=== PATIENT | male | born 1940 | race Caucasian/White ===

== ENCOUNTER → 2018-02-06 06:33 | Day surgery (SDC) | payer MEDICARE, OTHER, SELFPAY ==
--- NOTE | 2018-02-06 | PATH_ITS ---
[facility] Accession Number: [id number] . 01 Material submitted: . PART A: RIGHT COLON POLYPS X2 PART B: COLON POLYP AT 35 CM . 01 Clinical history: . A: POLYPS X2 . 02 Diagnosis: A. Right Colon Polyps: Fragments of tubular adenoma and fragments of sessile serrated adenoma (two polyps removed). . B. Colon Polyp at 35 cm: Tubulovillous adenoma. Negative for high-grade dysplasia or malignancy. MRV/02/10/2018 . 02 Electronically signed: . Abhay Montes De Oca MD, PhD, Pathologist NPI- [id number] . 01 Gross description: . Part A: RIGHT COLON POLYPS X2: Received in formalin are multiple fragment(s) of santos, soft tissue measuring 1.4 x 0.3 x 0.3 cm in aggregate submitted entirely in 1 cassette(s) Part B: COLON POLYP AT 35 CM: Received in formalin are multiple fragment(s) of santos, soft tissue measuring 2.0 x 1.1 x 0.3 cm in aggregate submitted entirely in 1 cassette(s) /CKI /CKI . 02 Pathologist provided ICD-10: D12.6 . 02 CPT . 550116, [id number] Performed at: [address] [facility] [address], [place], [place] [id number] MD Yuriy Lui MD Phone: [phone] Performed at: 02 [facility] [address] [place], [place] [id number] MD Adelfo Jones MD Phone: [phone]
[2018-02-06 07:24] VITALS: BP 155/76; PULSE 58; RESP 16; TEMP 36.4; O2SAT 100; BMI 24.2
--- NOTE | 2018-02-06 09:12 | PM.HP.1 ---
History of Present Illness Date Patient Seen: 02/06/18 Time Patient Seen: 09:12 Chief complaint: colonoscopy [id number] Narrative: Very pleasant 77-year-old man with a history of multiple colon polyps and ulcerative colitis. His last colonoscopy was 2 years ago. He denies any new problems or symptoms related to the function of his GI tract. Patient History Surgical History Status post hernia repair Family & Social History Family History: Reviewed 02/06/18 by Shaina Hussein MD Social History: household members spouse Meds Home Medications Medication Instructions Recorded Confirmed Type VITAMIN D (Vitamin D3) 1,000 unit PO QDAY #0 11/01/10 History Fish Oil 2,000 mg PO Q DAY #0 02/09/13 History sildenafil (antihypertensive) 0 PO SEE INSTRUCTIONS #100 tab 12/06/16 Rx fluticasone [Flonase Allergy 1 spray INTRANASAL QDAY #1 bot 01/11/17 Rx Relief] diphenhydramine HCl [Benadryl 25 mg PO Q6HP PRN #0 02/14/17 History Allergy] vitamin B complex [B 1 tab PO QDAY #0 02/14/17 History Complex-Vitamin B12] mesalamine [Asacol HD] 800 PO TID 02/06/18 History Allergies Allergy/AdvReac Type Severity Reaction Status Date / Time gluten [GLUTEN] Allergy Severe INTESTINAL Verified 02/06/18 07:23 BLEEDING caffeine [CAFFEINE] Allergy Intermediate CARDIAC Verified 02/06/18 07:23 IRREGULARITY erythromycin base Allergy Intermediate NAUSEA Verified 02/06/18 07:23 [ERYTHROMYCIN BASE] lactose [LACTOSE] Allergy Unknown Verified 02/06/18 07:23 doxycycline [DOXYCYCLINE] AdvReac Unknown NAUSEA, Verified 02/06/18 07:23 LOSS OF APPETITE AND ENERGY, MENTAL CHANGES. DARK CHOCOLATE Allergy Intermediate PHLEGM Uncoded 09/25/17 11:58 Review of Systems Review of Systems All systems reviewed & are unremarkable except as noted in HPI and below Exam Vital Signs (past 8 hours): - 02/06/18 07:24 Temperature 97.5 F L Pulse Rate 58 L Respiratory Rate 16 Blood Pressure 155/76 H Pulse Oximetry 100 Narrative Exam Narrative: Very pleasant gentleman in no distress. He appears much younger than his stated age. HEENT: Normocephalic atraumatic, pupils equal round reactive to light accommodation with anicteric sclera Lungs: Clear bilaterally Heart: Regular rate and rhythm Abdomen: Soft, nontender, active bowel sounds Extremities: Warm and well perfused Assessment & Plan Plan: Assessment/Plan Narrative: Pleasant gentleman with history of multiple colon polyps presenting for another screening colonoscopy. We have discussed the risks and benefits of the procedure the patient expressed desire to complete it today
[2018-02-06] MEDS: SODIUM CHLORIDE 0.9% 1,000 ML 200 ML IV ×2 (09:18→10:00)
[2018-02-06] MEDS: MIDAZOLAM 5 MG/5 ML VIAL IV (09:21)
[2018-02-06] MEDS: fentaNYL 250 MCG/5 ML INJ IV (09:22)
--- NOTE | 2018-02-06 10:01 | PM.OP.1 ---
Operative Date/Time/Diagnoses Date of procedure: 02/06/18 Time of procedure: 10:01 Pre-op diagnosis: Screening Personal history of colon polyps Post-op diagnosis: same Procedure & Clinicians Procedure: Colonoscopy to the cecum with polypectomy x3 Same procedure as scheduled: Yes Indications: Last colonoscopy 2 years ago with removal of benign polyps Surgeon: Shaina Hussein Anesthesia Type: Sedation (Versed 9 mg; fentanyl 200 mcg) Operative Notes Findings: 1. Excellent prep 2. Two polyps in the mid right colon. The 1st 2-3 mm and the 2nd 5-6 mm. One removed with cold forceps and 1 removed with snare and cautery. Both were retained for pathology. 3. 2 cm polyp at 35 cm from the anal verge. Removed in multiple segments with snare and cautery. The bed of the polyp was cauterized and marked with Marilou ink. 4. Sigmoid diverticulosis without evidence of inflammation 5. No obvious evidence of active colitis Closure Type: not applicable Specimen(s): other Procedure in detail: After obtaining informed consent, the patient was brought to the GI suite and placed in the left lateral decubitus position on the examination table. After placement of appropriate monitors, the patient was given incremental doses of Versed and Fentanyl until an appropriate level of sedation was achieved. A time out was held per SCOAP protocol. A digital rectal examination was performed and did not reveal any masses or obstructing lesions. The colonoscope was gently passed into the patient's anus and the entire colon navigated to the level of the cecum with minimal difficulty. Once in the cecum, the scope was withdrawn being sure to go before and beyond all mucosal folds and prominences and get an excellent examination. Upon withdrawing the scope, we noted a small sessile polyp in the mid right colon. This was removed with cold forceps. About 3 cm distal to this we noted a semi pedunculated larger polyp that was removed with snare and cautery. Continuing our examination distally, at 35 cm from the anal verge, there was a polyp chloride, multilobulated sessile polyp. This was removed with a combination of snare and cautery, cold forceps, and fulguration of the bed. All segments were retained for pathology. The site of this polyp was marked with Marilou ink. Other findings are noted above. At the level of the rectal vault, the scope was retroflexed and the internal anal canal was examined. The scope was straightened and air aspirated from the colon. The instrument was removed from the patient's body and the procedure was concluded. The patient was allowed to awaken from sedation without difficulty and taken to the post-anesthesia care unit in good condition. Complications: none Condition: stable Disposition: PACU Plan for aftercare: 1. Discharge to home 2. Repeat colonoscopy in 3 months to evaluate the 35 cm location for regrowth.
[2018-02-06 10:09] VITALS: BP 118/75; PULSE 56; RESP 13; TEMP 36.3; O2SAT 99
[2018-02-06 10:12] VITALS: PULSE 52; RESP 10; O2SAT 99
[2018-02-06 10:25] VITALS: BP 135/62; PULSE 50; RESP 14; TEMP 36.3; O2SAT 99
== END | disposition home or self-care (01) ==
PROVIDERS: Family Provider Family Medicine; PCP Family Medicine; Visit Provider Surgery
PROC: 0DJD8ZZ Inspection of Lower Intestinal Tract, Via Natural or Artificial Opening Endoscopic (ICD-10-PCS; CPT 45378; principal; 2018-02-06 07:45)
DX: Z86.010 Personal history of colon polyps (principal); K57.30 Diverticulosis of large intestine without perforation or abscess without bleeding; D12.6 Benign neoplasm of colon, unspecified
CPT/HCPCS: 45380; 45385; 99152; 99153; J2250; J3010

== ENCOUNTER 2018-04-24 07:48 | Day surgery (SDC) | payer MEDICARE, OTHER, SELFPAY ==
--- NOTE | 2018-04-24 | PATH_ITS ---
[facility] Accession Number: [id number] . 01 Material submitted: . DISTAL RIGHT COLON . 02 Diagnosis: Distal Right Colon, Biopsy: Fragments of sessile serrated adenoma. MRV/04/25/2018 . 02 Electronically signed: . Abhay Montes De Oca MD, PhD, Pathologist NPI- [id number] . 01 Gross description: . Received one formalin-filled container labeled with the patient's name and labeled distal R colon. The specimen consists of four 0.1-0.5 cm portions of tissue, entirely submitted in one cassette. ([id number]) /FRR . 02 Pathologist provided ICD-10: D12.6 . 02 CPT . 149369 Specimen Comment: A duplicate report has been generated due to demographic updates. Performed at: 01 [facility] [address] [id number] MD Yuriy Lui MD Phone: [phone] Performed at: 02 [facility] [id number] [place] [id number] MD Dot Miranda MD Phone: [phone]
[2018-04-24 11:13] VITALS: BP 160/84; PULSE 83; RESP 16; TEMP 36.2; O2SAT 100; BMI 23.8
--- NOTE | 2018-04-24 12:13 | PM.HP.1 ---
History of Present Illness Date Patient Seen: 04/24/18 Chief complaint: [id number] COLONOSCOPY Narrative: 77 y/o male with history of ulcerative colitis for more than 20yrs, history of polyps, no history of colon cancer. Good managment with mesalamine. Denies, bleeding, melena, constipation. Has infrequent loose stools. 2cm wide based polyp removed during surveillance colonoscopy [address] Hussein. Kieran tatooed at site. Here for follow up endoscopy to re-evaluate [facility]. Patient History Surgical History Status post hernia repair Family & Social History Family History: Reviewed 04/24/18 by Crow Maza MD Social History: household members spouse Meds Home Medications Medication Instructions Recorded Confirmed Type VITAMIN D (Vitamin D3) 1,000 unit PO QDAY #0 11/01/10 04/24/18 History Fish Oil 2,000 mg PO Q DAY #0 02/09/13 04/24/18 History fluticasone [Flonase Allergy 1 spray INTRANASAL QDAY #1 bot 01/11/17 04/24/18 Rx Relief] diphenhydramine HCl [Benadryl 25 mg PO Q6HP PRN #0 02/14/17 04/24/18 History Allergy] vitamin B complex [B 1 tab PO QDAY #0 02/14/17 History Complex-Vitamin B12] mesalamine [Asacol HD] 800 mg PO TID 02/06/18 04/24/18 History cetirizine 10 mg PO DAILY PRN 04/24/18 04/24/18 History naproxen sodium [Aleve] 220 mg PO BID PRN 04/24/18 04/24/18 History ranitidine HCl [Zantac] 150 mg PO DAILY 04/24/18 04/24/18 History sildenafil (antihypertensive) 80 mg PO SEE INSTRUCTIONS PRN 04/24/18 04/24/18 History Allergies Allergy/AdvReac Type Severity Reaction Status Date / Time gluten [GLUTEN] Allergy Severe INTESTINAL Verified 04/24/18 11:07 BLEEDING caffeine [CAFFEINE] Allergy Intermediate CARDIAC Verified 04/24/18 11:07 IRREGULARITY erythromycin base Allergy Intermediate NAUSEA Verified 04/24/18 11:07 [ERYTHROMYCIN BASE] lactose [LACTOSE] Allergy Unknown Verified 04/24/18 11:07 doxycycline [DOXYCYCLINE] AdvReac Unknown NAUSEA, Verified 04/24/18 11:07 LOSS OF APPETITE AND ENERGY, MENTAL CHANGES. DARK CHOCOLATE Allergy Intermediate PHLEGM Uncoded 04/24/18 11:07 Review of Systems Review of Systems All systems reviewed & are unremarkable except as noted in HPI and below Exam Vital Signs (past 8 hours): - 04/24/18 11:13 Temperature 97.1 F L Pulse Rate 83 Respiratory Rate 16 Blood Pressure 160/84 H Pulse Oximetry 100 Oxygen Delivery Method Room Air Const General: cooperative, healthy appearing and comfortable [facility] Head: normal to inspection, normocephalic and atraumatic Eyes Sclera: sclerae normal Neck Neck: supple Chest Chest: normal inspection of the chest Resp Effort & Inspection: normal respiratory effort Cardio Rate: regular rate Rhythm: regular rhythm GI Inspection: normal to inspection Palpation: soft Neuro General: alert and awake Extrem General: normal to inspection Psych Appearance: grossly normal Mood: congruent mood Affect: normal affect Thought Process: normal Thought Content: normal Judgment: judgment good Assessment & Plan Plan: Assessment/Plan Narrative: Colonoscopy to re-evalute biopsy site at 35cm. procedure, benefits, risks reviwed with patient.
--- NOTE | 2018-04-24 12:18 | P.HP_ITS ---
History of Present Illness Date Patient Seen: 04/24/18 Chief complaint: [id number] COLONOSCOPY Narrative: 77 y/o male with history of ulcerative colitis for more than 20yrs, history of polyps, no history of colon cancer. Good managment with mesalamine. Denies, bleeding, melena, constipation. Has infrequent loose stools. 2cm wide based polyp removed during surveillance colonoscopy [address] Hussein[address] Kieran tatooed at site. Here for follow up endoscopy to re-evaluate [facility]. Patient History Surgical History Status post hernia repair Family & Social History Family History: Reviewed 04/24/18 by Crow Maza MD Social History: household members spouse Meds Home Medications Medication Instructions Recorded Confirmed Type VITAMIN D (Vitamin D3) 1,000 unit PO QDAY #0 11/01/10 04/24/18 History Fish Oil 2,000 mg PO Q DAY #0 02/09/13 04/24/18 History fluticasone [Flonase Allergy 1 spray INTRANASAL QDAY #1 bot 01/11/17 04/24/18 Rx Relief] diphenhydramine HCl [Benadryl 25 mg PO Q6HP PRN #0 02/14/17 04/24/18 History Allergy] vitamin B complex [B 1 tab PO QDAY #0 02/14/17 History Complex-Vitamin B12] mesalamine [Asacol HD] 800 mg PO TID 02/06/18 04/24/18 History cetirizine 10 mg PO DAILY PRN 04/24/18 04/24/18 History naproxen sodium [Aleve] 220 mg PO BID PRN 04/24/18 04/24/18 History ranitidine HCl [Zantac] 150 mg PO DAILY 04/24/18 04/24/18 History sildenafil (antihypertensive) 80 mg PO SEE INSTRUCTIONS PRN 04/24/18 04/24/18 History Allergies Allergy/AdvReac Type Severity Reaction Status Date / Time gluten [GLUTEN] Allergy Severe INTESTINAL Verified 04/24/18 11:07 BLEEDING caffeine [CAFFEINE] Allergy Intermediate CARDIAC Verified 04/24/18 11:07 IRREGULARITY erythromycin base Allergy Intermediate NAUSEA Verified 04/24/18 11:07 [ERYTHROMYCIN BASE] lactose [LACTOSE] Allergy Unknown Verified 04/24/18 11:07 doxycycline [DOXYCYCLINE] AdvReac Unknown NAUSEA, Verified 04/24/18 11:07 LOSS OF APPETITE AND ENERGY, MENTAL CHANGES. DARK CHOCOLATE Allergy Intermediate PHLEGM Uncoded 04/24/18 11:07 Review of Systems Review of Systems All systems reviewed & are unremarkable except as noted in HPI and below Exam Vital Signs (past 8 hours): - 04/24/18 11:13 Temperature 97.1 F L Pulse Rate 83 Respiratory Rate 16 Blood Pressure 160/84 H Pulse Oximetry 100 Oxygen Delivery Method Room Air Const General: cooperative, healthy appearing and comfortable [facility] Head: normal to inspection, normocephalic and atraumatic Eyes Sclera: sclerae normal Neck Neck: supple Chest Chest: normal inspection of the chest Resp Effort & Inspection: normal respiratory effort Cardio Rate: regular rate Rhythm: regular rhythm GI Inspection: normal to inspection Palpation: soft Neuro General: alert and awake Extrem General: normal to inspection Psych Appearance: grossly normal Mood: congruent mood Affect: normal affect Thought Process: normal Thought Content: normal Judgment: judgment good Assessment & Plan Plan: Assessment/Plan Narrative: Colonoscopy to re-evalute biopsy site at 35cm. procedure, benefits, risks reviwed with patient.
[2018-04-24] MEDS: fentaNYL 250 MCG/5 ML INJ IV (14:33)
[2018-04-24] MEDS: MIDAZOLAM 5 MG/5 ML VIAL IV (14:34)
[2018-04-24 14:35] VITALS: BP 139/67; PULSE 61; RESP 15; TEMP 36.7; O2SAT 98
[2018-04-24] MEDS: diphenhydrAMINE 50 MG/ML VIAL IV (14:39)
--- NOTE | 2018-04-24 14:44 | P.OP.ENDO_ITS ---
Operative Date/Time/Diagnoses Date of procedure: 04/24/18 Procedure & Clinicians Study performed: colonoscopy with biopsy Same procedure as scheduled: Yes Indications: Ulcerative colitis History of colon polyps. Colonoscopy 3 months ago revealed large, wide-based polyp at 35cm. Repeat colonoscopy to evaluate polypectomy site. Surgeon: Crow Maza Procedure Notes SCOAP/Timeout: done Procedure in detail: Patient taken from preoperative area to endoscopy suite with adequate iv access on guerny. Timeout was performed. IV sedation sedation was titrated throughout the case while patient was continuously monitored. No lesions were revealed with inspection of anal orifice. Digital exam failed to palpate any lesions. A well lubricated Fuji colonoscope was gently introduced through the anus and advanced to the cecum using the dither- torque technique. Confirmation of reaching the cecum was acheived by identifying the appendiceal orifice and ileocecal valve. a raised wide-based polypoid mass was identified on mucosal ridge in distal right colon. It was removed using snare and cold biopsy forcep techniques. The residual base was sterilized with electrocautery. Scattered few diverticuli seen in the sigmoid colon. No ink tatoo was seen in sigmoid or rectum region. An invagination of mucosa along a mucosal ridge was identifed at 34cm, most likely representing prior biopsy site. Retroflexion of the endoscope in lower third of rectum revealed grade 2 internal hemorrhoids. Residual insufflation was evacuated. Patient tolerated procedure well and was transferred to PACU in stable condition. Scope withdrawal time: 32 Sedation minutes: 49 Findings: diverticulosis (sigmoid) and polyp (distal ascending colon) Specimen(s): other (polyp) Complications: none Recommendations: Colonscopy in 1 year and Other recommendation (follow up with surgical clinic for appointment to review biopsy results) Follow up: weeks (1-2 weeks) Disposition: same day surgery
[2018-04-24 15:03] VITALS: BP 124/68; PULSE 60; RESP 15; TEMP 36.6; O2SAT 98
[2018-04-24 15:30] VITALS: BP 122/63; PULSE 60; RESP 16; TEMP 36.6; O2SAT 98
== END 2018-04-24 14:45 ==
LOC: ENDO 07:52
PROVIDERS: Surgery; Family Provider Family Medicine; PCP Family Medicine; Visit Provider Surgery
PROC: 0DJD8ZZ Inspection of Lower Intestinal Tract, Via Natural or Artificial Opening Endoscopic (ICD-10-PCS; CPT 45378; principal; 2018-04-24 11:15)
DX: Z09 Encounter for follow-up examination after completed treatment for conditions other than malignant neoplasm (principal); Z86.010 Personal history of colon polyps; Z87.19 Personal history of other diseases of the digestive system; K64.1 Second degree hemorrhoids; K57.30 Diverticulosis of large intestine without perforation or abscess without bleeding; D12.6 Benign neoplasm of colon, unspecified
CPT/HCPCS: 45385; 88305; 99152; 99153; J1200; J2250; J3010

== ENCOUNTER 2018-05-05 20:05 | Observation (INO) | payer MEDICARE, OTHER, SELFPAY ==
[2018-05-05 20:07] VITALS: BP 154/89; PULSE 96; RESP 20; TEMP 36.8; O2SAT 100
[2018-05-05 20:45] VITALS: BP 154/89; PULSE 87; RESP 20; TEMP 36.8; O2SAT 100
[2018-05-05 20:48] LABS: Alanine Aminotransferase 27 IU/L (21-72); Albumin Globulin Ratio 1.7 (1.0-2.8); Alkaline Phosphatase 72 U/L (38-126); Aspartate Aminotransferase 25 IU/L (17-59); BUN Creatinine Ratio 18.8 (6-22); Bilirubin Total 0.5 mg/dL (0.2-1.3); Blood Urea Nitrogen 15 mg/dL (9-20); Carbon Dioxide 30 mmol/L (22-32); Chloride 102 mmol/L (98-107); Estimated Glomerular Filt Rate > 60.0 mL/min (>60); Globulin 2.4 g/dL (1.7-4.1); Glucose 111 mg/dL (80-110); HEMOLYSIS < 15 (0-50); Potassium 4.4 mmol/L (3.4-5.1); Sodium 141 mmol/L (137-145); Total Protein 6.4 g/dL (6.3-8.2)
--- NOTE | 2018-05-05 20:49 | ED.GIBLEED ---
HPI - GI Bleed <PAULY Wyman - Last Filed: 05/05/18 21:58> General Chief complaint: GI Bleed Stated complaint: BLOOD IN STOOLS Time Seen by Provider: 05/05/18 20:48 Source: patient Mode of arrival: ambulatory Limitations: no limitations History of Present Illness HPI Narrative: 77-year-old male with history of Crohn's disease as a nonsmoker here for complaint of having bloody stool that started earlier today the. The he has had 3 episodes of bloody stool. He denies any abdominal pain. He does state that he is had constipation over the last several days. He states he had a large bowel movement earlier this morning and noticed that he was bleeding after that bowel movement. He denies any abdominal pain. However he does states he had some groin pain a couple days ago. He denies any trauma to the rectal area. He does report that he had a colonoscopy last week for further evaluation of polyps to his colon area. He denies any bleeding or abdominal pain after the colonoscopy. He denies any fevers or chills. Related Data Home Medications Medication Instructions Recorded Confirmed VITAMIN D (Vitamin D3) 1,000 unit PO QDAY #0 11/01/10 05/06/18 Fish Oil 2,000 mg PO Q DAY #0 02/09/13 04/24/18 diphenhydramine HCl [Benadryl 25 mg PO Q6HP PRN #0 02/14/17 04/24/18 Allergy] vitamin B complex [B 1 tab PO QDAY #0 02/14/17 05/06/18 Complex-Vitamin B12] mesalamine [Asacol HD] See Label Instructions .ROUTE 02/06/18 04/24/18 .COMPLEX cetirizine 10 mg PO DAILY PRN 04/24/18 04/24/18 naproxen sodium [Aleve] 220 mg PO BID PRN 04/24/18 04/24/18 ranitidine HCl [Zantac] 150 mg PO DAILY 04/24/18 04/24/18 sildenafil (antihypertensive) 80 mg PO SEE INSTRUCTIONS PRN 04/24/18 05/06/18 Previous Rx's Medication Instructions Recorded fluticasone [Flonase Allergy 1 spray INTRANASAL QDAY #1 bot 01/11/17 Relief] Allergies Allergy/AdvReac Type Severity Reaction Status Date / Time gluten [GLUTEN] Allergy Severe INTESTINAL Verified 04/24/18 11:07 BLEEDING caffeine [CAFFEINE] Allergy Intermediate CARDIAC Verified 04/24/18 11:07 IRREGULARITY erythromycin base Allergy Intermediate NAUSEA Verified 04/24/18 11:07 [ERYTHROMYCIN BASE] lactose [LACTOSE] Allergy Unknown Verified 04/24/18 11:07 doxycycline [DOXYCYCLINE] AdvReac Unknown NAUSEA, Verified 04/24/18 11:07 LOSS OF APPETITE AND ENERGY, MENTAL CHANGES. DARK CHOCOLATE Allergy Intermediate PHLEGM Uncoded 04/24/18 11:07 Review of Systems <PAULY Wyman - Last Filed: 05/05/18 21:58> Constitutional Denies chills, Denies fever(s), Denies lethargy and Denies weakness Eyes Denies change in vision, Denies eye discharge, Denies irritation and Denies loss of vision ENT Ears, Nose, Mouth, and Throat: Denies change in voice, Denies neck pain and Denies sore throat Cardiovascular Denies chest pain, Denies irregular heart rhythm, Denies lightheadedness, Denies palpitations, Denies dyspnea, Denies dyspnea on exertion and Denies orthopnea Respiratory Denies cough, Denies dyspnea, Denies dyspnea on exertion and Denies wheezing Gastrointestinal Gastrointestinal: Denies abdominal pain, Denies change in bowel habits, Denies diarrhea, Denies nausea and Denies vomiting Comments: Bloody stool Genitourinary Denies hematuria, Denies flank pain, Denies urinary incontinence and Denies urinary urgency Comments: Groin pain Musculoskeletal Denies neck pain Neurologic Denies confusion, Denies loss of vision and Denies weakness Psychiatric Denies anxiety, Denies confusion, Denies depression, Denies homicidal ideation and Denies suicidal ideation Endocrine Denies palpitations Hematologic/Lymphatic Denies easy bruising Allergic/Immunologic Denies wheezing Exam <PAULY Wyman - Last Filed: 05/05/18 21:58> Initial Vital Signs Initial Vital Signs: Vital Signs Temperature 98.3 F 05/05/18 20:07 Pulse Rate 96 H 05/05/18 20:07 Respiratory Rate 20 05/05/18 20:07 Blood Pressure 154/89 H 05/05/18 20:07 Pulse Oximetry 100 05/05/18 20:07 Const General: cooperative and well developed Nutritional Appearance: well nourished Orientation: alert, awake, oriented x3 and not confused [facility] Mouth: oral mucosae normal and moist mucous membranes Eyes Conjunctivae: conjunctivae normal Sclera: sclerae normal Pupils: PERRL EOM: EOM intact bilaterally Resp Effort & Inspection: normal respiratory effort, able to speak in complete sentences, no respiratory distress and no use of accessory muscles Auscultation: clear to auscultation bilaterally, no rales, no rhonchi and no wheezes Cardio Rate: regular rate Rhythm: regular rhythm Heart Sounds: no click, no gallops, no murmurs and no rubs GI Inspection: non-distended Palpation: soft, no hepatosplenomegaly, No guarding, No pulsatile mass and No tender Auscultation: normal bowel sounds Rectal Exam: visual inspection normal, normal sphincter tone and heme positive stool Other: Bloody stool on rectal exam General: No CVA tenderness Penis: normal penis Meatus: meatus normal and no meatla discharge Scrotum: scrotum normal Testes: epididymal tenderness and testicular tenderness Other: Inguinal hernia not appreciated to the left inguinal area Skin General: no rashes or lesions noted, No jaundice and No petechiae Neuro General: alert, oriented x3, gait normal and no focal motor deficits Speech: speech normal <Cyril Flowers DO - Last Filed: 05/06/18 02:00> Initial Vital Signs Initial Vital Signs: Vital Signs Temperature 98.3 F 05/05/18 20:07 Pulse Rate 96 H 05/05/18 20:07 Respiratory Rate 20 05/05/18 20:07 Blood Pressure 154/89 H 05/05/18 20:07 Pulse Oximetry 100 05/05/18 20:07 Course <PAULY Wyman - Last Filed: 05/05/18 21:58> Orders Ordered: ED Orders 05/05/18 20:25 CBC [Complete Blood Count AUTO DIFF] Stat CMP [Comprehensive Metabolic Panel] Stat PT [Prothrombin Time INR] Stat Type and Screen Stat 05/05/18 21:11 CT abdomen pelvis w con Stat 05/05/18 21:35 US scrotum Stat 05/06/18 00:07 Hemoglobin and Hematocrit Stat 05/06/18 00:35 Packed Cells Stat Vital Signs - 8 hr 05/05/18 20:07 05/05/18 20:45 05/05/18 21:00 Temperature 98.3 F 98.3 F Pulse Rate 96 H 87 87 Respiratory Rate 20 20 20 Blood Pressure 154/89 H 154/89 H Blood Pressure [Right Arm] 140/69 Pulse Oximetry 100 100 100 05/05/18 21:46 05/05/18 22:32 05/05/18 23:00 Temperature Pulse Rate 70 77 82 Respiratory Rate 16 18 20 Blood Pressure Blood Pressure [Right Arm] 142/83 H 139/84 136/75 Pulse Oximetry 100 100 05/06/18 00:00 05/06/18 00:37 05/06/18 00:50 Temperature Pulse Rate 75 67 68 Respiratory Rate 17 17 17 Blood Pressure 121/68 Blood Pressure [Right Arm] 148/63 H 94/54 L Pulse Oximetry 99 100 99 05/06/18 01:10 Temperature 96.7 F L Pulse Rate 75 Respiratory Rate 16 Blood Pressure 124/66 Blood Pressure [Right Arm] Pulse Oximetry 99 <Cyril Flowers, DO - Last Filed: 05/06/18 02:00> Orders Ordered: ED Orders 05/05/18 20:25 CBC [Complete Blood Count AUTO DIFF] Stat CMP [Comprehensive Metabolic Panel] Stat PT [Prothrombin Time INR] Stat Type and Screen Stat 05/05/18 21:11 CT abdomen pelvis w con Stat 05/05/18 21:35 US scrotum Stat 05/06/18 00:07 Hemoglobin and Hematocrit Stat 05/06/18 00:35 Packed Cells Stat Reevaluation(s) Reevaluation #1: very large amount of blood with clots trailing to the emergency department after the patient had ambulated. He has become dizzy, weak and lightheaded and will certainly need to be admitted. Call to Dr. Hussein, whom is happy to be involved in consult, but recommends admission to hospitalist Vital Signs - 8 hr 05/05/18 20:07 05/05/18 20:45 05/05/18 21:00 Temperature 98.3 F 98.3 F Pulse Rate 96 H 87 87 Respiratory Rate 20 20 20 Blood Pressure 154/89 H 154/89 H Blood Pressure [Right Arm] 140/69 Pulse Oximetry 100 100 100 05/05/18 21:46 05/05/18 22:32 05/05/18 23:00 Temperature Pulse Rate 70 77 82 Respiratory Rate 16 18 20 Blood Pressure Blood Pressure [Right Arm] 142/83 H 139/84 136/75 Pulse Oximetry 100 100 05/06/18 00:00 05/06/18 00:37 05/06/18 00:50 Temperature Pulse Rate 75 67 68 Respiratory Rate 17 17 17 Blood Pressure 121/68 Blood Pressure [Right Arm] 148/63 H 94/54 L Pulse Oximetry 99 100 99 05/06/18 01:10 Temperature 96.7 F L Pulse Rate 75 Respiratory Rate 16 Blood Pressure 124/66 Blood Pressure [Right Arm] Pulse Oximetry 99 MDM - GI Bleed <PAULY Wyman - Last Filed: 05/05/18 21:58> Lab Data Result diagrams: 05/05/18 23:30 05/05/18 20:25 Lab Results 05/05/18 05/05/18 05/05/18 Range/Units 20:25 20:25 20:25 WBC 7.1 (4.5-11.0) X10^3/uL RBC 4.36 L (4.5-5.9) X10^6/uL Hgb 13.8 (13.5-17.5) g/dL Hct 41.3 (41-53) % MCV 94.8 (80-100) fL MCH 31.7 (26-34) PG MCHC 33.4 (30-36) % RDW 12.7 (11.6-14.8) % Plt Count 237 (150-400) X10^3/uL Neut % (Auto) 47.4 L (50-75) % Lymph % (Auto) 41.9 H (25-40) % [place] % (Auto) 7.0 (3-14) % Eos % (Auto) 3.0 (2-4) % Baso % (Auto) 0.7 (0-2) % Neut # (Auto) 3400 (3933-0318) /uL PT 11.8 (10.1-12.7) SECONDS INR 1.1 (0.9-1.3) Sodium 141 (137-145) mmol/L Potassium 4.4 (3.4-5.1) mmol/L Chloride 102 (98-107) mmol/L Carbon Dioxide 30 (22-32) mmol/L BUN 15 (9-20) mg/dL Creatinine 0.80 (0.66-1.25) mg/dL Estimated GFR > 60.0 (>60) mL/min BUN/Creatinine Ratio 18.8 (6-22) Glucose 111 H (80-110) mg/dL Calcium 9.0 (8.4-10.2) mg/dL Total Bilirubin 0.5 (0.2-1.3) mg/dL AST 25 (17-59) IU/L ALT 27 (21-72) IU/L Alkaline Phosphatase 72 (38-126) U/L Total Protein 6.4 (6.3-8.2) g/dL Albumin 4.0 (3.5-5.0) g/dL Globulin 2.4 (1.7-4.1) g/dL Albumin/Globulin Ratio 1.7 (1.0-2.8) Blood Type Antibody Screen Crossmatch 05/05/18 05/05/18 Range/Units 20:25 23:30 WBC (4.5-11.0) X10^3/uL RBC (4.5-5.9) X10^6/uL Hgb 12.3 L (13.5-17.5) g/dL Hct 36.6 L (41-53) % MCV (80-100) fL MCH (26-34) PG MCHC (30-36) % RDW (11.6-14.8) % Plt Count (150-400) X10^3/uL Neut % (Auto) (50-75) % Lymph % (Auto) (25-40) % [place] % (Auto) (3-14) % Eos % (Auto) (2-4) % Baso % (Auto) (0-2) % Neut # (Auto) (2723-8174) /uL PT (10.1-12.7) SECONDS INR (0.9-1.3) Sodium (137-145) mmol/L Potassium (3.4-5.1) mmol/L Chloride (98-107) mmol/L Carbon Dioxide (22-32) mmol/L BUN (9-20) mg/dL Creatinine (0.66-1.25) mg/dL Estimated GFR (>60) mL/min BUN/Creatinine Ratio (6-22) Glucose (80-110) mg/dL Calcium (8.4-10.2) mg/dL Total Bilirubin (0.2-1.3) mg/dL AST (17-59) IU/L ALT (21-72) IU/L Alkaline Phosphatase (38-126) U/L Total Protein (6.3-8.2) g/dL Albumin (3.5-5.0) g/dL Globulin (1.7-4.1) g/dL Albumin/Globulin Ratio (1.0-2.8) Blood Type O Positive Antibody Screen Negative Crossmatch See Detail MDM Narrative Medical decision making narrative: CBC and Chem panel were obtained and were unremarkable. INR was normal. Rectal exam was negative for any lesions or injuries. Bloody stool on rectal exam. Ultrasound of the testicular area was ordered. CT of the abdomen was ordered. Due to change of shift. Patient was turned over to Dr. Flowers <Cyril Flowers, DO - Last Filed: 05/06/18 02:00> Lab Data Lab Results 05/05/18 05/05/18 05/05/18 Range/Units 20:25 20:25 20:25 WBC 7.1 (4.5-11.0) X10^3/uL RBC 4.36 L (4.5-5.9) X10^6/uL Hgb 13.8 (13.5-17.5) g/dL Hct 41.3 (41-53) % MCV 94.8 (80-100) fL MCH 31.7 (26-34) PG MCHC 33.4 (30-36) % RDW 12.7 (11.6-14.8) % Plt Count 237 (150-400) X10^3/uL Neut % (Auto) 47.4 L (50-75) % Lymph % (Auto) 41.9 H (25-40) % [place] % (Auto) 7.0 (3-14) % Eos % (Auto) 3.0 (2-4) % Baso % (Auto) 0.7 (0-2) % Neut # (Auto) 3400 (1108-4253) /uL PT 11.8 (10.1-12.7) SECONDS INR 1.1 (0.9-1.3) Sodium 141 (137-145) mmol/L Potassium 4.4 (3.4-5.1) mmol/L Chloride 102 (98-107) mmol/L Carbon Dioxide 30 (22-32) mmol/L BUN 15 (9-20) mg/dL Creatinine 0.80 (0.66-1.25) mg/dL Estimated GFR > 60.0 (>60) mL/min BUN/Creatinine Ratio 18.8 (6-22) Glucose 111 H (80-110) mg/dL Calcium 9.0 (8.4-10.2) mg/dL Total Bilirubin 0.5 (0.2-1.3) mg/dL AST 25 (17-59) IU/L ALT 27 (21-72) IU/L Alkaline Phosphatase 72 (38-126) U/L Total Protein 6.4 (6.3-8.2) g/dL Albumin 4.0 (3.5-5.0) g/dL Globulin 2.4 (1.7-4.1) g/dL Albumin/Globulin Ratio 1.7 (1.0-2.8) Blood Type Antibody Screen Crossmatch 05/05/18 05/05/18 Range/Units 20:25 23:30 WBC (4.5-11.0) X10^3/uL RBC (4.5-5.9) X10^6/uL Hgb 12.3 L (13.5-17.5) g/dL Hct 36.6 L (41-53) % MCV (80-100) fL MCH (26-34) PG MCHC (30-36) % RDW (11.6-14.8) % Plt Count (150-400) X10^3/uL Neut % (Auto) (50-75) % Lymph % (Auto) (25-40) % [place] % (Auto) (3-14) % Eos % (Auto) (2-4) % Baso % (Auto) (0-2) % Neut # (Auto) (2133-4816) /uL PT (10.1-12.7) SECONDS INR (0.9-1.3) Sodium (137-145) mmol/L Potassium (3.4-5.1) mmol/L Chloride (98-107) mmol/L Carbon Dioxide (22-32) mmol/L BUN (9-20) mg/dL Creatinine (0.66-1.25) mg/dL Estimated GFR (>60) mL/min BUN/Creatinine Ratio (6-22) Glucose (80-110) mg/dL Calcium (8.4-10.2) mg/dL Total Bilirubin (0.2-1.3) mg/dL AST (17-59) IU/L ALT (21-72) IU/L Alkaline Phosphatase (38-126) U/L Total Protein (6.3-8.2) g/dL Albumin (3.5-5.0) g/dL Globulin (1.7-4.1) g/dL Albumin/Globulin Ratio (1.0-2.8) Blood Type O Positive Antibody Screen Negative Crossmatch See Detail Discharge Plan Departure Patient Disposition: Admitted as Observation Clinical Impression: Acute GI bleeding Discharge Date/Time: 05/06/18 00:50 Interventions: ED Discharge Assessment Last Done: 05/06/18 00:50 Admit Date/Time: 05/06/18 00:26 Admit Provider: Sanjana Werner
[2018-05-05 20:51] LABS: INR 1.1 (0.9-1.3); Prothrombin Time 11.8 SECONDS (10.1-12.7)
[2018-05-05 21:00] VITALS: BP 140/69; PULSE 87; RESP 20; O2SAT 100
[2018-05-05 21:06] LABS: Add Manual Diff / Slide Review NO; Basophils Percent Auto 0.7 % (0-2); Hematocrit 41.3 % (41-53); Hemoglobin 13.8 g/dL (13.5-17.5); Lymphocytes Percent Auto 41.9 % (25-40); Mean Corpuscular HGB Conc 33.4 % (30-36); Mean Corpuscular Hemoglobin 31.7 PG (26-34); Mean Corpuscular Volume 94.8 fL (80-100); Neutrophils Absolute Auto 3400 /uL (3000-5900); Neutrophils Percent Auto 47.4 % (50-75); Platelet Count 237 X10^3/uL (150-400); Red Blood Cell Count 4.36 X10^6/uL (4.5-5.9); Red Cell Distribution Width 12.7 % (11.6-14.8); White Blood Cell Count 7.1 X10^3/uL (4.5-11.0)
--- NOTE | 2018-05-05 21:11 | DI.CT.S_ITS ---
PROCEDURE: CT ABDOMEN PELVIS W CON INDICATIONS: GI bleed TECHNIQUE: After the administration of intravenous contrast, 5 mm thick sections acquired from the diaphragm to the symphysis. 5 mm coronal and sagittal reformats were acquired. For radiation dose reduction, the following was used: automated exposure control, adjustment of mA and/or kV according to patient size. COMPARISON: [facility], CT, ABD/PELVIS W/CON (PNL), 10/31/2010, 12:10. FINDINGS: Image quality: Excellent. ABDOMEN: Lung bases: There is minimal dependent atelectasis. A small hiatal hernia is present. Heart size is normal. Solid organs: There are 2 small hypodensities redemonstrated within the right and left hepatic lobes measuring up to approximately 7 mm which appear unchanged and likely representing cysts. Biliary system is non dilated. Pancreas enhances normally. Spleen is normal in size and enhancement. No adrenal nodules. Kidneys demonstrate no hydronephrosis. Peritoneum and bowel: Bowel loops demonstrate normal wall thickness and caliber. There are air-fluid levels demonstrated throughout the small and large bowel suggestive of a gastroenteritis. No abnormal bowel distention to suggest obstruction. No discrete mass identified. There are 2 radiodense ovoid foreign bodies within a small bowel loop in the left midabdomen likely representing ingested pills. No free fluid or air. Nodes and vessels: No retroperitoneal or mesenteric adenopathy by size criteria. Aorta and inferior vena cava are normal in size. Miscellaneous: No ventral hernias. PELVIS: Genitourinary: Bladder wall thickness is normal. There is mild heterogeneous enlargement of the prostate. Miscellaneous: There is small bilateral fat-containing inguinal hernias. No inguinal adenopathy. Bones: No suspicious bony lesions. No vertebral body compression fractures. IMPRESSION: 1. Air-fluid levels demonstrated throughout the small and large bowel suggestive of gastroenteritis. No definite evidence of obstruction or discrete mass lesion. 2. 2 radiodense foreign bodies in the small bowel likely representing ingested foreign bodies. Dictated by: Yuriy Adams M.D. on 05/05/2018 at 22:18 Approved by: Yuriy Adams M.D. on 05/05/2018 at 22:25
--- NOTE | 2018-05-05 21:15 | PC.NURSE ---
Pt states bloody stool x 3 today, recent colonoscopy on 04/24 with polyp removal and biopsy results still pending. Pt states left groin pain 06/26, denies N/V, ABD pain or SOB. Bowel sounds active in all quadrants upon auscultation.
--- NOTE | 2018-05-05 21:35 | DI.US.S_ITS ---
PROCEDURE: US SCROTUM INDICATIONS: LEFT INGUINAL/TESTICULAR PAIN TECHNIQUE: Real-time scanning was performed of the scrotum and testicles, with image documentation. Color and pulse Doppler interrogation was performed of both testicles. COMPARISON: [facility], CT, CT ABDOMEN PELVIS W CON, 05/05/2018, 21:14. FINDINGS: Right: Testicle is normal in size at 2.6 x 3.5 x 4.5 cm, and homogenous in echotexture. Epididymis is normal in overall size and morphology. No hydrocele or varicoceles. Overlying scrotal skin is normal in thickness. Left: Testicle is normal in size at 2.0 x 3.2 x 4.3 cm, and homogeneous in echotexture. Epididymis is normal in overall size and morphology. No hydrocele there is a prominent varicocele on the left. Overlying scrotal skin is normal in thickness. Doppler: Color and pulse Doppler demonstrate normal and symmetric arterial flow in both testicles. IMPRESSION: Prominent left varicocele, but the epididymis and testis appears normal. Dictated by: Connor Gabriel M.D. on 05/06/2018 at 8:25 Approved by: Connor Gabriel M.D. on 05/06/2018 at 8:28
[2018-05-05 21:46] VITALS: BP 142/83; PULSE 70; RESP 16
[2018-05-05 22:32] VITALS: BP 139/84; PULSE 77; RESP 18; O2SAT 100
[2018-05-05 23:00] VITALS: BP 136/75; PULSE 82; RESP 20; O2SAT 100
[2018-05-06] VITALS (11 sets, daily range): BP systolic 94–148; BP diastolic 41–68; PULSE 60–75; RESP 16–20; TEMP 35.9–37; O2SAT 96–100; BMI 24.2
--- NOTE | 2018-05-06 | PC.NURSE ---
Pt stated felt dizzy upon getting dressed for DC, had episode of incontinent bloody BM in room, Dr Flowers Notified.
[2018-05-06 00:15] LABS: Hematocrit 36.6 % (41-53); Hemoglobin 12.3 g/dL (13.5-17.5)
--- NOTE | 2018-05-06 02:31 | PC.NURSE ---
0110 Admitted to room 222, accompanied by his Lili. Diagnosed with GI bleed. Denies any dizziness, nausea & abdominal pain. Assisted to the BSC noted bloody stool mixed with urine noted 400 cc out. ER ordered to transfused 2 units of PRBC's, but when I checked the blood from the lab. LB.YALMA DELIA noted his H&H was12.3 & 36.6. Notified hospitalist Alphonso ordered to hold transfusion for now & will rechecked his H&H. Informed pt. that the transfusion is on hold for now. Pt. oriented to his room showed how to use his call light, TV & bed controls. Call for assistance if needed to get up OOB to the BR or BSC, call light with in reached. Lili staying for the night, will cont. POC & monitor.
--- NOTE | 2018-05-06 03:34 | P.HP_ITS ---
History of Present Illness Date Patient Seen: 05/06/18 Time Patient Seen: 03:34 Chief complaint: BLOOD IN STOOLS Narrative: The patient is a 77-year-old male w/ PMH is significant for HTN, HLD, asthma, CTS, cholelithiasis, BPH, small hiatal hernia, small b/l inguinal hearnias, UC w/ rectal bleeding, hemorrhoids, spinal stenosis (lumbar) , trochanteric bursitis (left hip), rosacia, and actinic keratosis. Patient presented to the ED on 05/05/18 out of concern for blood per rectum. Symptom onset is acute, started at approximately 7:00 a.m. on 05/05/2018. At that time reports presence of rectal urgency; however, no defecation or blood loss. Then at 11:00 at experienced similar sensation, which was followed by a large bowel movement with dark red blood. No reported diarrhea. Prior to ED presentation he has had additional 3 episodes of blood loss per rectum, which consisted entirely of blood and blood clots (no further BM). Associated sx include: groin pain (2-3 days ago), arthropathy (recently worse), and constipation. Patient is unable to provide clear description to discern if he is experiencing melena or hematochezia. Also, experienced addition 2 episodes of blood per rectum while in ED and 1 upon arrival to the acute care floor. Denies recent illness, fever/chills, hematemesis, abdominal tenderness, dyspepsia, abdominal distention, nausea, vomiting or tenesmus. Denies use of aspirin or any other anticoagulation. He does use Aleve, 1 tablet daily 5 days per week. Patient has had a colonoscopyw/ polypectomy on 04/24/2018. No post- procedural complications or concerns. GI history significant for ulcerative colitis, treated w/ Asacol. No h/o alcohol abuse or esophageal varices. ED work-up WBC 7.1, RBC 4.36, Hgb 13.8, Plt 237; PT 11.8, INR 1.1; CMP unremarkable CT AP w/ contrast, 05/05 Air-fluid levels demonstrated throughout the small and large bowel suggestive of gastroenteritis. No definite evidence of obstruction or discrete mass lesion. Patient History Surgical History Status post hernia repair Family & Social History Family History: Reviewed 05/06/18 by PAULY Parra Social History: household members spouse,family,friend(s) Prior Living Arrangements House Safety & Behavioral: Feels Safe in Current No Environment Been Physically Hurt or No Threatened By a Person Suicidal Ideation Description None Suicide Plan Description No Plan Tobacco & Substance use: Smoking Status Never smoker alcohol intake current alcohol intake frequency 3 or more drinks per day Meds Home Medications Medication Instructions Recorded Confirmed Type VITAMIN D (Vitamin D3) 1,000 unit PO QDAY #0 11/01/10 05/06/18 History Fish Oil 2,000 mg PO Q DAY #0 02/09/13 05/06/18 History fluticasone [Flonase Allergy 1 spray INTRANASAL QDAY #1 bot 01/11/17 05/06/18 Rx Relief] diphenhydramine HCl [Benadryl 25 mg PO Q6HP PRN #0 02/14/17 05/06/18 History Allergy] vitamin B complex [B 1 tab PO QDAY #0 02/14/17 05/06/18 History Complex-Vitamin B12] mesalamine [Asacol HD] See Label Instructions .ROUTE 02/06/18 05/06/18 History .COMPLEX cetirizine 10 mg PO DAILY PRN 04/24/18 05/06/18 History naproxen sodium [Aleve] 220 mg PO BID PRN 04/24/18 05/06/18 History ranitidine HCl [Zantac] 150 mg PO DAILY 04/24/18 05/06/18 History sildenafil (antihypertensive) 80 mg PO SEE INSTRUCTIONS PRN 04/24/18 05/06/18 History Allergies Allergy/AdvReac Type Severity Reaction Status Date / Time gluten [GLUTEN] Allergy Severe INTESTINAL Verified 04/24/18 11:07 BLEEDING caffeine [CAFFEINE] Allergy Intermediate CARDIAC Verified 04/24/18 11:07 IRREGULARITY erythromycin base Allergy Intermediate NAUSEA Verified 04/24/18 11:07 [ERYTHROMYCIN BASE] lactose [LACTOSE] Allergy Unknown Verified 04/24/18 11:07 doxycycline [DOXYCYCLINE] AdvReac Unknown NAUSEA, Verified 04/24/18 11:07 LOSS OF APPETITE AND ENERGY, MENTAL CHANGES. DARK CHOCOLATE Allergy Intermediate PHLEGM Uncoded 04/24/18 11:07 Review of Systems Review of Systems All systems reviewed & are unremarkable except as noted in HPI and below Exam Vital Signs (past 8 hours): - 05/05/18 20:07 05/05/18 20:45 05/05/18 21:00 Temperature 98.3 F 98.3 F Pulse Rate 96 H 87 87 Respiratory Rate 20 20 20 Blood Pressure 154/89 H 154/89 H Blood Pressure [Right Arm] 140/69 Pulse Oximetry 100 100 100 05/05/18 21:46 05/05/18 22:32 05/05/18 23:00 Temperature Pulse Rate 70 77 82 Respiratory Rate 16 18 20 Blood Pressure Blood Pressure [Right Arm] 142/83 H 139/84 136/75 Pulse Oximetry 100 100 05/06/18 00:00 05/06/18 00:37 05/06/18 00:50 Temperature Pulse Rate 75 67 68 Respiratory Rate 17 17 17 Blood Pressure 121/68 Blood Pressure [Right Arm] 148/63 H 94/54 L Pulse Oximetry 99 100 99 05/06/18 01:10 Temperature 96.7 F L Pulse Rate 75 Respiratory Rate 16 Blood Pressure 124/66 Blood Pressure [Right Arm] Pulse Oximetry 99 Oxygen Delivery Method Room Air Narrative Exam Narrative: Constitutional: NAD Neurologic: AOx3, no focal neurological deficits Head: NC, AT Eyes: Pupils equal and reactive, EOMI Ears: external ears normal, no otorrhea Nose: external nose normal, no rhinorrhea or epistaxis Throat: dry MM, oropharynx w/o exudate Neck: no masses, no lymphadenopathy Chest / Respiratory: equal chest rise, unlabored respiratory effort, no tachypnea, CTAB Heart / CV: S1S2, no murmur Abdomen / GI: round, NT, ND, hypoactive, no organomegaly : no suprapubic tenderness, no CVA, no inguinal lymphadenopathy or palpable inguinal hernias Peripheral / Vascular: warm to touch, DP 2+ bilaterally, trace LE edema RLE only Musc: full ROM of upper and lower extremities, adequate muscle tone and bulk Skin: no ecchymosis or suspicious lesions Objective Labs Result Diagrams: 05/05/18 23:30 05/05/18 20:25 Labs: Laboratory Results - last 24 hr 05/05/18 05/05/18 05/05/18 20:25 20:25 20:25 WBC 7.1 RBC 4.36 L Hgb 13.8 Hct 41.3 MCV 94.8 MCH 31.7 MCHC 33.4 RDW 12.7 Plt Count 237 Neut % (Auto) 47.4 L Lymph % (Auto) 41.[address] [place] % (Auto) 7.0 Eos % (Auto) 3.0 Baso % (Auto) 0.7 Neut # (Auto) 3400 PT 11.8 INR 1.1 Sodium 141 Potassium 4.4 Chloride 102 Carbon Dioxide 30 BUN 15 Creatinine 0.80 Estimated GFR > 60.0 BUN/Creatinine Ratio 18.8 Glucose 111 H Calcium 9.0 Total Bilirubin 0.5 AST 25 ALT 27 Alkaline Phosphatase 72 Total Protein 6.4 Albumin 4.0 Globulin 2.4 Albumin/Globulin Ratio 1.7 Blood Type Antibody Screen Crossmatch 05/05/18 05/05/18 20:25 23:30 WBC RBC Hgb 12.3 L Hct 36.6 L MCV MCH MCHC RDW Plt Count Neut % (Auto) Lymph % (Auto) [place] % (Auto) Eos % (Auto) Baso % (Auto) Neut # (Auto) PT INR Sodium Potassium Chloride Carbon Dioxide BUN Creatinine Estimated GFR BUN/Creatinine Ratio Glucose Calcium Total Bilirubin AST ALT Alkaline Phosphatase Total Protein Albumin Globulin Albumin/Globulin Ratio Blood Type O Positive Antibody Screen Negative Crossmatch See Detail Assessment & Plan Plan: Assessment/Plan Narrative: Acute GI Bleed post procedural (s/p colonoscopy) vs ulcerative colitis flare vs NSAID induced vs ulcerative colitis Hgb 13.6, repeat 12.3; no hemodynamic instability Presentation appears to be more consistent with an ulcerative colitis flare - trend hemoglobin q.6 hours - IV fluids - may need to consider PRBC transfusion for HGB less than 7 g/dL, patient agrees to PRBC transfusion if need arises, blood consent has been signed - Protonix bolus, followed by gtt x72 hours - Asacol 1.6 mg TID for 6 weeks - Consult GI for evaluation and further input Ulcerative colitis w/ sx suggestive of a flare 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 During previous flare, went up to 6 tabs. Has had 6 bloody stools in the past 24 hours. No evidence of systemic toxicity. - Asacol 1.6 mg TID for 6 weeks - Need to clarify home dose of Asacol w/ patient's pharmacy in am Arthropathy - No NSAIDs at this time - Supportive care and tylenol prn Essential HTN BP stable. No hypotension in lieu of active blood loss. 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 Patient is not aware of prior history of gastric ulcers. EQUITY DIRECTOR on H2 dav, Zantac 150 daily. - hold H2 dav, on protonix CODE STATUS: Full Code. DPOA: Aura Guidry, spouse. Home medications reviewed and reconciled. Quality VTE Deep Vein Thrombosis/Pulmonary Embolism Present on Admission: No
[2018-05-06] MEDS: SODIUM CHLORIDE 0.9% 1,000 ML 100 ML IV ×2 (04:20→14:33)
[2018-05-06] MEDS: SODIUM CHLORIDE 0.9% FLUSH 10 ML IV ×3 (04:20→21:04)
[2018-05-06] MEDS: PANTOPRAZOLE 80 MG in SODIUM CHLORIDE 0.9% 100 ML 200 ML IV (05:29)
[2018-05-06 06:19] LABS: Hemoglobin 10.8 g/dL (13.5-17.5)
[2018-05-06 06:30] LABS: Blood Urea Nitrogen 16 mg/dL (9-20); Calcium 8.2 mg/dL (8.4-10.2); Carbon Dioxide 30 mmol/L (22-32); Chloride 102 mmol/L (98-107); Estimated Glomerular Filt Rate > 60.0 mL/min (>60); Glucose 104 mg/dL (80-110); HEMOLYSIS < 15 (0-50); Potassium 4.5 mmol/L (3.4-5.1); Sodium 139 mmol/L (137-145)
[2018-05-06] MEDS: PANTOPRAZOLE 80 MG in SODIUM CHLORIDE 0.9% 100 ML 10 ML IV (06:31)
--- NOTE | 2018-05-06 09:02 | CM.DANOTE ---
DCP: Case received, EMR reviewed and met with patient. Introduced self and role. DCP template completed with information currently available. Patient is a 77 year old male who admitted early this morning to the care of the hospitalist team. PCP: Dr. Kimbrough. Payer: confirmed: Medicare/Ivanna Chung. Patient came to hospital due to having blood in his stools. Patient carries diagnosis of Gastroenteritis/Acute GI bleed. Met with patient in room. Pleasant, alert and oriented. [place] [address] with his spouse, who was also in the room. Stated that he was feeling better, and hoping to go home soon. P: DCP to continue to follow. Should be able to go home when stable. Shameka Espinosa RN/Manager Night
[2018-05-06] MEDS: MESALAMINE 800 MG TABLET.DR 1600 MG PO ×3 (10:38→21:04)
[2018-05-06 11:52] LABS: Hemoglobin 9.8 g/dL (13.5-17.5)
--- NOTE | 2018-05-06 13:59 | PM.CN ---
History of Present Illness Date Patient Seen: 05/06/18 Time Patient Seen: 08:34 Chief complaint: BLOOD IN STOOLS Reason for consult: Blood in stools Requesting provider: Priya Chand Narrative: Liu is a pleasant 77-year-old gentleman who is well known to me. He has a history of multiple colon polyps and of ulcerative colitis for many years. He underwent a colonoscopy in January or February and then again in March. Both times he had serrated adenomas and tubulovillous adenomas removed. He presented to the emergency room last evening with complaint of bright red blood per rectum. It started slowly but once he got to the emergency room he had a very large stool consisting primarily of clot. He was admitted to the hospitalist service for supportive care and I have been consulted. [facility] Surgical History Status post hernia repair Family History Father High cholesterol AIDS Mother Mental health problem Grandfather Age: 62 Heart disease Grandmother Age: 51 Encephalitis Social History household members: spouse, family and friend(s) Smoking Status: Never smoker alcohol intake: current Meds Home Medications Medication Instructions Recorded Confirmed Type VITAMIN D (Vitamin D3) 1,000 unit PO QDAY #0 11/01/10 05/06/18 History Fish Oil 2,000 mg PO Q DAY #0 02/09/13 05/06/18 History fluticasone [Flonase Allergy 1 spray INTRANASAL QDAY #1 bot 01/11/17 05/06/18 Rx Relief] diphenhydramine HCl [Benadryl 25 mg PO Q6HP PRN #0 02/14/17 05/06/18 History Allergy] vitamin B complex [B 1 tab PO QDAY #0 02/14/17 05/06/18 History Complex-Vitamin B12] mesalamine [Asacol HD] See Label Instructions .ROUTE 02/06/18 05/06/18 History .COMPLEX cetirizine 10 mg PO DAILY PRN 04/24/18 05/06/18 History naproxen sodium [Aleve] 220 mg PO BID PRN 04/24/18 05/06/18 History ranitidine HCl [Zantac] 150 mg PO DAILY 04/24/18 05/06/18 History sildenafil (antihypertensive) 80 mg PO SEE INSTRUCTIONS PRN 04/24/18 05/06/18 History Allergies Allergy/AdvReac Type Severity Reaction Status Date / Time gluten [GLUTEN] Allergy Severe INTESTINAL Verified 04/24/18 11:07 BLEEDING caffeine [CAFFEINE] Allergy Intermediate CARDIAC Verified 04/24/18 11:07 IRREGULARITY erythromycin base Allergy Intermediate NAUSEA Verified 04/24/18 11:07 [ERYTHROMYCIN BASE] lactose [LACTOSE] Allergy Unknown Verified 04/24/18 11:07 doxycycline [DOXYCYCLINE] AdvReac Unknown NAUSEA, Verified 04/24/18 11:07 LOSS OF APPETITE AND ENERGY, MENTAL CHANGES. DARK CHOCOLATE Allergy Intermediate PHLEGM Uncoded 04/24/18 11:07 Review of Systems Review of Systems Denies any abdominal pain. Wants to go home. He reports he never had any pain except the cramping that occur just before having the bowel movements. He is very hungry. He does admit that he has been constipated recently and he wonders if this had anything to do with bleeding episodes. He says his weight has been stable. Reports that he did have some left testicular pain and that was abated with a left night as well but he seems to be improved today. Exam Vital Signs (past 8 hours): - 05/06/18 07:00 05/06/18 08:21 05/06/18 11:00 Temperature 98.0 F 98.3 F Pulse Rate 73 67 Respiratory Rate 18 16 Blood Pressure 144/56 H 110/41 L Pulse Oximetry 98 99 97 Oxygen Delivery Method Room Air Narrative Exam Narrative: Pleasant and thin gentleman in no obvious distress HEENT: Normocephalic and atraumatic, pupils equal round reactive. Sclera are notably anicteric. Lungs: Clear Heart: Regular rate and rhythm Abdomen: Soft. Completely nontender to palpation. Hyperactive bowel sounds. No rebound or guarding. No heel tap or Rovsing sign. Extremities: Warm and well perfused Objective Labs Result Diagrams: 05/06/18 11:25 05/06/18 05:49 Labs: Laboratory Results - last 24 hr 05/05/18 05/05/18 05/05/18 20:25 20:25 20:25 WBC 7.1 RBC 4.36 L Hgb 13.8 Hct 41.3 MCV 94.8 MCH 31.7 MCHC 33.4 RDW 12.7 Plt Count 237 Neut % (Auto) 47.4 L Lymph % (Auto) 41.9 H [place] % (Auto) 7.0 Eos % (Auto) 3.0 Baso % (Auto) 0.7 Neut # (Auto) 3400 PT 11.8 INR 1.1 Sodium 141 Potassium 4.4 Chloride 102 Carbon Dioxide 30 BUN 15 Creatinine 0.80 Estimated GFR > 60.0 BUN/Creatinine Ratio 18.8 Glucose 111 H Calcium 9.0 Total Bilirubin 0.5 AST 25 ALT 27 Alkaline Phosphatase 72 Total Protein 6.4 Albumin 4.0 Globulin 2.4 Albumin/Globulin Ratio 1.7 Blood Type Antibody Screen Crossmatch 05/05/18 05/05/18 05/06/18 20:25 23:30 05:49 WBC RBC Hgb 12.3 L 10.8 L Hct 36.6 L MCV MCH MCHC RDW Plt Count Neut % (Auto) Lymph % (Auto) [place] % (Auto) Eos % (Auto) Baso % (Auto) Neut # (Auto) PT INR Sodium Potassium Chloride Carbon Dioxide BUN Creatinine Estimated GFR BUN/Creatinine Ratio Glucose Calcium Total Bilirubin AST ALT Alkaline Phosphatase Total Protein Albumin Globulin Albumin/Globulin Ratio Blood Type O Positive Antibody Screen Negative Crossmatch See Detail 05/06/18 05/06/18 05:49 11:25 WBC RBC Hgb 9.8 L Hct MCV MCH MCHC RDW Plt Count Neut % (Auto) Lymph % (Auto) [place] % (Auto) Eos % (Auto) Baso % (Auto) Neut # (Auto) PT INR Sodium 139 Potassium 4.5 Chloride 102 Carbon Dioxide 30 BUN 16 Creatinine 0.80 Estimated GFR > 60.0 BUN/Creatinine Ratio 20.0 Glucose 104 Calcium 8.2 L Total Bilirubin AST ALT Alkaline Phosphatase Total Protein Albumin Globulin Albumin/Globulin Ratio Blood Type Antibody Screen Crossmatch [address] [address] [address] Scan Report Signed Patient: Nick Guidry MR#: [id number] : 1940 Acct:[id number] Age/Sex: 77 / M Date of Service: 05/05/18 Loc: ED Accession Number: [id number] Procedure: CT abdomen pelvis w con Ordering Provider: Kody James PROCEDURE: CT ABDOMEN PELVIS W CON INDICATIONS: GI bleed TECHNIQUE: After the administration of intravenous contrast, 5 mm thick sections acquired from the diaphragm to the symphysis. 5 mm coronal and sagittal reformats were acquired. For radiation dose reduction, the following was used: automated exposure control, adjustment of mA and/or kV according to patient size. COMPARISON: [facility], CT, ABD/PELVIS W/CON (PNL), 10/31/2010, 12:10. FINDINGS: Image quality: Excellent. ABDOMEN: Lung bases: There is minimal dependent atelectasis. A small hiatal hernia is present. Heart size is normal. Solid organs: There are 2 small hypodensities redemonstrated within the right and left hepatic lobes measuring up to approximately 7 mm which appear unchanged and likely representing cysts. Biliary system is non dilated. Pancreas enhances normally. Spleen is normal in size and enhancement. No adrenal nodules. Kidneys demonstrate no hydronephrosis. Peritoneum and bowel: Bowel loops demonstrate normal wall thickness and caliber. There are air-fluid levels demonstrated throughout the small and large bowel suggestive of a gastroenteritis. No abnormal bowel distention to suggest obstruction. No discrete mass identified. There are 2 radiodense ovoid foreign bodies within a small bowel loop in the left midabdomen likely representing ingested pills. No free fluid or air. Nodes and vessels: No retroperitoneal or mesenteric adenopathy by size criteria. Aorta and inferior vena cava are normal in size. Miscellaneous: No ventral hernias. PELVIS: Genitourinary: Bladder wall thickness is normal. There is mild heterogeneous enlargement of the prostate. Miscellaneous: There is small bilateral fat-containing inguinal hernias. No inguinal adenopathy. Bones: No suspicious bony lesions. No vertebral body compression fractures. IMPRESSION: 1. Air-fluid levels demonstrated throughout the small and large bowel suggestive of gastroenteritis. No definite evidence of obstruction or discrete mass lesion. 2. 2 radiodense foreign bodies in the small bowel likely representing ingested foreign bodies. Dictated by: Yuriy Adams M.D. on 05/05/2018 at 22:18 Approved by: Yuriy Adams M.D. on 05/05/2018 at 22:25 Assessment & Plan Plan: Assessment/Plan Narrative: 77-year-old gentleman with a history of diverticulosis, ulcerative colitis, and recent polypectomies who had an episode of significant bright red blood per rectum last evening 3 times. He has not had no further bloody bowel movements since being admitted to the hospital. He is hungry and denies any abdominal cramping. He says he does feel movement in there. His hemoglobin has dropped to 9.8 which probably reflects both his blood loss and hydration. I have advanced his diet to full liquids. I have recommended watchful waiting. Liu understands that he will need to be on stool softeners twice daily assuming this episode stops and does not recur. If he begins to bleed again, we may have to consider repeat colonoscopy or transfer for for interventional radiology.
--- NOTE | 2018-05-06 14:11 | PM.PN.1 ---
Subjective Date Patient Seen: 05/06/18 Interval history: Patient seen and examined. He reports 1 bloody stool that was melanotic it for a.m.. He has had no further stools since then. No abdominal pain. Patient is ready to progress to a liquid diet. Will continue to manage his symptoms by following hematocrit. He has been seen by Dr. Mckeon. If the patient continues to have significant bleeding further endoscopy will be entertained. In the interim will resume his Asacol and monitor his rectal bleeding. Exam Vital Signs (past 8 hours): - 05/06/18 07:00 05/06/18 08:21 05/06/18 11:00 Temperature 98.0 F 98.3 F Pulse Rate 73 67 Respiratory Rate 18 16 Blood Pressure 144/56 H 110/41 L Pulse Oximetry 98 99 97 Oxygen Delivery Method Room Air Narrative Exam Narrative: Pleasant male in no acute distress Lungs: Clear to auscultation CV: RRR nl Sl S2 Abd: soft/ non tender/ non distended Ext: no edema Objective Labs Result Diagrams: 05/06/18 11:25 05/06/18 05:49 Labs: Laboratory Results - last 24 hr 05/05/18 05/05/18 05/05/18 20:25 20:25 20:25 WBC 7.1 RBC 4.36 L Hgb 13.8 Hct 41.3 MCV 94.8 MCH 31.7 MCHC 33.4 RDW 12.7 Plt Count 237 Neut % (Auto) 47.4 L Lymph % (Auto) 41.9 H [place] % (Auto) 7.0 Eos % (Auto) 3.0 Baso % (Auto) 0.7 Neut # (Auto) 3400 PT 11.8 INR 1.1 Sodium 141 Potassium 4.4 Chloride 102 Carbon Dioxide 30 BUN 15 Creatinine 0.80 Estimated GFR > 60.0 BUN/Creatinine Ratio 18.8 Glucose 111 H Calcium 9.0 Total Bilirubin 0.5 AST 25 ALT 27 Alkaline Phosphatase 72 Total Protein 6.4 Albumin 4.0 Globulin 2.4 Albumin/Globulin Ratio 1.7 Blood Type Antibody Screen Crossmatch 05/05/18 05/05/18 05/06/18 20:25 23:30 05:49 WBC RBC Hgb 12.3 L 10.8 L Hct 36.6 L MCV MCH MCHC RDW Plt Count Neut % (Auto) Lymph % (Auto) [place] % (Auto) Eos % (Auto) Baso % (Auto) Neut # (Auto) PT INR Sodium Potassium Chloride Carbon Dioxide BUN Creatinine Estimated GFR BUN/Creatinine Ratio Glucose Calcium Total Bilirubin AST ALT Alkaline Phosphatase Total Protein Albumin Globulin Albumin/Globulin Ratio Blood Type O Positive Antibody Screen Negative Crossmatch See Detail 05/06/18 05/06/18 05:49 11:25 WBC RBC Hgb 9.8 L Hct MCV MCH MCHC RDW Plt Count Neut % (Auto) Lymph % (Auto) [place] % (Auto) Eos % (Auto) Baso % (Auto) Neut # (Auto) PT INR Sodium 139 Potassium 4.5 Chloride 102 Carbon Dioxide 30 BUN 16 Creatinine 0.80 Estimated GFR > 60.0 BUN/Creatinine Ratio 20.0 Glucose 104 Calcium 8.2 L Total Bilirubin AST ALT Alkaline Phosphatase Total Protein Albumin Globulin Albumin/Globulin Ratio Blood Type Antibody Screen Crossmatch Assessment & Plan (1) Acute GI bleeding: Problem details: Will continue serial hematocrit. Doubt upper GI bleeding Current visit: Yes Status: Acute (2) Gastroesophageal reflux disease without esophagitis: Problem details: continue PPI Current visit: No Status: None (3) Essential hypertension: Current visit: No Status: None (4) Ulcerative colitis with rectal bleeding: Problem details: Continue Asacol. No need for endocscopy at this time Current visit: No Status: None Quality VTE Deep Vein Thrombosis/Pulmonary Embolism Present on Admission: No
[2018-05-06 18:19] LABS: Hemoglobin 10.3 g/dL (13.5-17.5)
--- NOTE | 2018-05-06 22:24 | PC.NURSE ---
05/06 2224; pt alert and oriented x4, VSS on RA, had one low BP (98/47) this evening but asymptomatic, up multiple times to BSC without any observed or reported lightheadedness/dizziness. Had one episode of blood from rectum, estimate about 25ml of liquid blood mixed into urine. pt states to have reduced bloody stools since last night. Tolerating PO intake and denies any presence of pain or other discomfort. Hemoglobin improved, next blood panel in AM.
[2018-05-07] VITALS: O2SAT 97
[2018-05-07] MEDS: SODIUM CHLORIDE 0.9% 1,000 ML 100 ML IV (00:40)
[2018-05-07 00:45] VITALS: BP 118/69; PULSE 57; RESP 16; TEMP 37; O2SAT 97
[2018-05-07 06:05] VITALS: BP 141/67; PULSE 79; RESP 16; TEMP 36.9; O2SAT 98
[2018-05-07 06:40] LABS: Add Manual Diff / Slide Review NO; Basophils Percent Auto 0.7 % (0-2); Eosinophils Percent Auto 3.6 % (2-4); Hematocrit 31.3 % (41-53); Hemoglobin 10.5 g/dL (13.5-17.5); Lymphocytes Percent Auto 41.9 % (25-40); Mean Corpuscular HGB Conc 33.5 % (30-36); Mean Corpuscular Hemoglobin 31.8 PG (26-34); Mean Corpuscular Volume 94.9 fL (80-100); Monocytes Percent Auto 7.6 % (3-14); Neutrophils Absolute Auto 2900 /uL (3000-5900); Neutrophils Percent Auto 46.2 % (50-75); Platelet Count 176 X10^3/uL (150-400); Red Cell Distribution Width 12.6 % (11.6-14.8); White Blood Cell Count 6.3 X10^3/uL (4.5-11.0)
[2018-05-07 06:51] LABS: BUN Creatinine Ratio 11.3 (6-22); Blood Urea Nitrogen 9 mg/dL (9-20); Calcium 8.3 mg/dL (8.4-10.2); Carbon Dioxide 29 mmol/L (22-32); Chloride 106 mmol/L (98-107); Estimated Glomerular Filt Rate > 60.0 mL/min (>60); Glucose 103 mg/dL (80-110); HEMOLYSIS < 15 (0-50); Potassium 4.2 mmol/L (3.4-5.1); Sodium 141 mmol/L (137-145)
--- NOTE | 2018-05-07 08:10 | PC.NURSE ---
Patient sitting upright in bed, without complaint. Denies issues overnight, states he slept well. IV fluids infusing as ordered. Call light within reach. Patient states he is hopeful to be discharged to home today. Will continue to monitor and follow plan of care.
--- NOTE | 2018-05-07 08:42 | P.PN_ITS ---
Subjective Date Patient Seen: 05/07/18 Time Patient Seen: 08:40 Interval history: Liu is in good spirits this morning. He denies any pain in his abdomen or any rumbling around. He is very hungry. Very anxious to go home. Exam Vital Signs (past 8 hours): - 05/07/18 00:45 05/07/18 06:05 Temperature 98.6 F 98.4 F Pulse Rate 57 L 79 Respiratory Rate 16 16 Blood Pressure 118/69 141/67 H Pulse Oximetry 97 98 Oxygen Delivery Method Room Air Narrative Exam Narrative: Abdomen is soft, nontender, active bowel sounds. Objective Labs Result Diagrams: 05/07/18 06:17 05/07/18 06:17 Labs: Laboratory Results - last 24 hr 05/06/18 05/06/18 05/07/18 11:25 17:10 06:17 WBC 6.3 RBC 3.30 L Hgb 9.8 L 10.3 L 10.5 L Hct 31.3 L MCV 94.9 MCH 31.8 MCHC 33.5 RDW 12.6 Plt Count 176 Neut % (Auto) 46.2 L Lymph % (Auto) 41.9 H [place] % (Auto) 7.6 Eos % (Auto) 3.6 Baso % (Auto) 0.7 Neut # (Auto) 2900 L Sodium Potassium Chloride Carbon Dioxide BUN Creatinine Estimated GFR BUN/Creatinine Ratio Glucose Calcium 05/07/18 06:17 WBC RBC Hgb Hct MCV MCH MCHC RDW Plt Count Neut % (Auto) Lymph % (Auto) [place] % (Auto) Eos % (Auto) Baso % (Auto) Neut # (Auto) Sodium 141 Potassium 4.2 Chloride 106 Carbon Dioxide 29 BUN 9 Creatinine 0.80 Estimated GFR > 60.0 BUN/Creatinine Ratio 11.3 Glucose 103 Calcium 8.3 L Assessment & Plan Plan: Assessment/Plan Narrative: Lower GI bleed following an episode of constipation and gentleman with recent polypectomies as well as diverticulosis. Liu has a a gluten free diet ordered for this morning and I am going to start his stool softeners as well. As long as he tolerates his breakfast, he can go home from a surgical perspective. He can expect to have old blood in his bowel movements for the next couple of days but there should not be copious fresh clots. Rapid to see him back at any time in the future. Quality VTE Deep Vein Thrombosis/Pulmonary Embolism Present on Admission: No
[2018-05-07 09:00] VITALS: BP 129/61; PULSE 64; RESP 18; TEMP 37.1; O2SAT 98
[2018-05-07] MEDS: SODIUM CHLORIDE 0.9% FLUSH 10 ML IV (09:24)
[2018-05-07] MEDS: MESALAMINE 800 MG TABLET.DR 1600 MG PO (09:24)
--- NOTE | 2018-05-07 11:18 | P.DS_ITS ---
History of Present Illness Date Patient Seen: 05/07/18 Time Patient Seen: 11:15 Chief complaint: BLOOD IN STOOLS Narrative: 77-year-old male with past medical history of hypertension, hyperlipidemia, asthma, CTS, cholecystolithiasis, BPH, small hiatal hernia, small bilateral inguinal hernias, ulcer colitis with rectal bleeding, hemorrhoids, spinal stenosis, trochanteric bursitis, rosacea, nicotinic keratosis presented to emergency department with bright red blood per rectum. As per patient symptoms BKA of acute onset for 1 day duration. At that time patient felt rectal urgency. However, notification or blood loss was noted. Later that day, patient experienced similar sensation followed by large bowel movement was dark red blood. No reported diarrhea. Prior to ED presentation he had 3 episodes of more bloody bowel movements which consistent RAMEZ of blood clots. Patient also complained of recent constipation prior to admission.Denies recent illness, fever/chills, hematemesis, abdominal tenderness , dyspepsia, abdominal distention, nausea, vomiting or tenesmus. Denies use of aspirin or any other anticoagulation. He does use Aleve, 1 tablet daily 5 days per week. Patient has had a colonoscopyw/ polypectomy on 04/24/2018. No post- procedural complications or concerns. GI history significant for ulcerative colitis, treated w/ Asacol. No h/o alcohol abuse or esophageal varices. Discharge Providers Date of admission: 05/06/18 00:26 Primary care physician: Bartolome Kimbrough MD Discharge provider: Sol Hollins MD Discharge Date: 05/07/18 Summary Discharge Diagnosis: Acute GI bleeding likely due to rectal polyp versus ulcerative colitis, resolved GERD without esophagitis Essential hypertension Ulcerative colitis with rectal bleeding resolved Hospital Course: On arrival to ED, patient's vital signs were stable. He had 2 episodes of bright red blood per rectum while in the ED. Lab work revealed WBC 7.1, hemoglobin 13.8, platelets 237. CMP was unremarkable. CT abdomen and pelvis with contrast revealed air-fluid levels throughout the small and large bowel suggestive of gastroenteritis no other evidence of obstruction or discrete mass lesions were noted. Patient is admitted to general medical floor. Hemoglobin was trended q.6 hours, which initially dropped, but remained stable at around 9.8-10.5. Patient was also placed on IV fluids. Protonix drip was started, and Asacol, the ulcerative cries treatment, was doubled. Surgery was consulted, and Dr. Hussein recommended watchful waiting. She attributed bright red blood per rectum to recent polypectomy from the last colonoscopy in March. Patient's condition has improved over the course of hospital stay, and he did not require repeat colonoscopy. Bleeding has subsided , and on 05/07 bleeding has completely resolved. Diet was advanced from clear liquids to general. Patient was recommended to continue taking Colace b.i.d. to help with constipation and prevent bleeding in the future. Patient's Asacol will be switched to baseline home regimen, and patient will be sent home with follow-up to his handkerchief maker. Protonix will be switched to ranitidine home regimen for GERD Exam Vital Signs (past 8 hours): - 05/07/18 06:05 05/07/18 09:00 Temperature 98.4 F 98.7 F Pulse Rate 79 64 Respiratory Rate 16 18 Blood Pressure 141/67 H 129/61 Pulse Oximetry 98 98 Oxygen Delivery Method Room Air Objective Labs Result Diagrams: 05/07/18 06:17 05/07/18 06:17 Labs: Laboratory Results - last 24 hr 05/06/18 05/06/18 05/07/18 11:25 17:10 06:17 WBC 6.3 RBC 3.30 L Hgb 9.8 L 10.3 L 10.5 L Hct 31.3 L MCV 94.9 MCH 31.8 MCHC 33.5 RDW 12.6 Plt Count 176 Neut % (Auto) 46.2 L Lymph % (Auto) 41.9 H [place] % (Auto) 7.6 Eos % (Auto) 3.6 Baso % (Auto) 0.7 Neut # (Auto) 2900 L Sodium Potassium Chloride Carbon Dioxide BUN Creatinine Estimated GFR BUN/Creatinine Ratio Glucose Calcium 05/07/18 06:17 WBC RBC Hgb Hct MCV MCH MCHC RDW Plt Count Neut % (Auto) Lymph % (Auto) [place] % (Auto) Eos % (Auto) Baso % (Auto) Neut # (Auto) Sodium 141 Potassium 4.2 Chloride 106 Carbon Dioxide 29 BUN 9 Creatinine 0.80 Estimated GFR > 60.0 BUN/Creatinine Ratio 11.3 Glucose 103 Calcium 8.3 L Discharge Plan Discharge Med Rec/Prescriptions Prescriptions: New docusate sodium [Colace] 100 mg capsule 100 mg PO BID Qty: 60 RF: 0 Continue VITAMIN D (Vitamin D3) 1,000 unit PO QDAY Qty: 0 RF: 0 Fish Oil 2,000 mg PO Q DAY Qty: 0 RF: 0 fluticasone [Flonase Allergy Relief] 9.9 ML spray,suspension 1 spray Intranasal QDAY Qty: 1 RF: 1 vitamin B complex [B Complex-Vitamin B12] 1 EACH tablet 1 tab PO QDAY Qty: 0 RF: 0 diphenhydramine HCl [Benadryl Allergy] 25 MG tablet 25 mg PO Q6HP PRN (Reason: Allergic Reaction) Qty: 0 RF: 0 mesalamine [Asacol HD] 800 MG tablet,delayed release (DR/EC) See Label Instructions .ROUTE .COMPLEX RF: 0 ranitidine HCl [Zantac] 150 mg Tablet 150 mg PO DAILY RF: 0 cetirizine 10 mg Capsule 10 mg PO DAILY PRN (Reason: allergies ) RF: 0 sildenafil (antihypertensive) 20 MG tablet 80 mg PO SEE INSTRUCTIONS PRN (Reason: Erectile Dysfunction) RF: 0 Discontinued naproxen sodium [Aleve] 220 mg Capsule 220 mg PO BID PRN (Reason: Pain (Scale Score 1-3)) RF: 0 Follow up/Referrals: Shaina Hussein MD [Physician] - Bartolome Kimbrough MD [Primary Care Provider] - Discharge Orders: Discharge (Order); Ordered 05/07/18 Ordered By: Sol Hollins Provider Discharge Instructions Diet: Regular Liquid consistency: Normal/Thin Food texture: Regular Diet comment: Diet high in fiber Visit Report/Discharge Packet Instructions: Gastrointestinal Bleeding Discharge Data Primary Care Provider: Bartolome Kimbrough Attending Provider: Sanjana Werner Admit Date/Time: 05/06/18 00:26 Quality VTE Deep Vein Thrombosis/Pulmonary Embolism Present on Admission: No
--- NOTE | 2018-05-07 11:54 | PC.NURSE ---
IV's (x2) dc'd intact, patient tolerated well. Patient up in room, dressed and ambulating without difficulty, tolerated well. Discharge instructions and medications reviewed with patient. Patient eager to discharge to home with , lives on [address]. Patient will call to scheduled follow up appt. with his PCP. Escorted out via wheelchair by student nurse to be discharged to home with with all belongings. Patient instructed to call MD with questions or concerns or to seek emergent care should fresh rectal bleeding occur.
== END 2018-05-07 11:55 ==
LOC: ED 23:28 → AC 05-06 00:26
PROVIDERS: Internal Medicine; Admitting Provider Nurse Practitioner Gerontology; Emergency Provider Emergency Medicine; Family Provider Family Medicine; PCP Family Medicine; Visit Provider Nurse Practitioner Gerontology
DX: K92.2 Gastrointestinal hemorrhage, unspecified (principal); K51.911 Ulcerative colitis, unspecified with rectal bleeding; I10 Essential (primary) hypertension; K21.9 Gastro-esophageal reflux disease without esophagitis; J45.909 Unspecified asthma, uncomplicated
CPT/HCPCS: 36415; 36591; 74177; 76870; 80048; 80053; 85014; 85018; 85025; 85610; 86850; 86900; 86901; 99283; 99285; G0378; C9113; Q9967

== ENCOUNTER 2019-08-25 07:47 | Outpatient (CLI) | payer MEDICARE, OTHER, SELFPAY ==
[2019-07-09 10:44] VITALS: BMI 24.2
[2019-08-25] VITALS (8 sets, daily range): BP systolic 99–160; BP diastolic 56–73; PULSE 40–55; RESP 16–17; TEMP 36.1; O2SAT 98–100
--- NOTE | 2019-08-25 07:48 | DI.RAD.S_ITS ---
PROCEDURE: PAIN L/S TRANSFORAMINAL INJECT INDICATIONS: RADICULOPATHY FINDINGS: Fluoroscopic spot filming was performed to verify placement of spinal needles at the L5-S1 level(s), as labeled on the films. Appropriate location(s) of the needle tip(s) was confirmed by injection of iodinated contrast. Dictated by: Danie Noguera M.D. on 08/25/2019 at 9:40 Approved by: Danie Noguera M.D. on 08/25/2019 at 9:49
[2019-08-25] MEDS: MIDAZOLAM 5 MG/5 ML VIAL IV (08:47)
[2019-08-25] MEDS: BUPIVACAINE 0.25% (PF) VIAL 2 ML INJ (08:50)
[2019-08-25] MEDS: IOPAMIDOL 15 ML VIAL 3 ML INJ (08:50)
[2019-08-25] MEDS: DEXAMETHASONE 10 MG/ML VIAL 20 MG INJ (08:51)
[2019-08-25] MEDS: BETAMETHASONE 30 MG/5 ML MDV 6 MG INJ (08:51)
--- NOTE | 2019-08-25 08:53 | PC.NURSE ---
ASSISTING PT OFF TABLE AND TRANSPORTING TO POST PROC AREA IN STABLE CONDITION. PASSING RN CARE OF PT OFF TO APRIL Garcia RN.
--- NOTE | 2019-08-25 08:57 | P.PCN_ITS ---
Procedures Date/Time Date of procedure: 08/25/19 Time of procedure: 08:57 General Procedure description: PREOP DIAGNOSIS 1. FORMAINAL STENOSIS WITH LE SYMPTOMS, POST OP DIAGNOSIS 1. FORMAINAL STENOSIS WITH LE SYMPTOMS, PROCEDURES 1.FLUOROSCOPICALLY GUIDED CONTRAST CONTROLLED TRANSFORAMINAL EPIDURAL STEROID INJECTION - RIGHT L5/S1 TFESI PHYSICIAN: Bartolome Catalan DO INDICATIONS: Nick is referred by Dr. Kimbrough for treatment of Foraminal Stenosis with right LE Symptoms FINDINGS Foraminal Nerve Root Compression secondary to disc disease and facet hypertrophy DESCRIPTION OF PROCEDURE Following review of allergy and review of potential side effects and complications, including, but not necessarily limited to, infection, allergic reaction, local tissue breakdown, stroke, temporary or permanent nerve injury, paralysis, and possible , the patient indicated that the patient understood and agreed to proceed. An informed consent document was signed by the patient, witnessed by a nurse, and placed in the patient's chart. Additionally, other treatment options including medications, modalities, and physical therapy were reviewed with the patient. After review of previous anaesthesic history and IV conscious sedation the patient was deemed safe to proceed with todays procedure with IV conscious sedation as ASA class II designation. Safety time-out was performed to confirm patient ID, procedure to be performed and site of procedure. IV sedation was accomplished with 2mg of Versed was administered by the RN after DO order, titrated to patient comfort during the course of the procedure while the patient remained responsive to all verbal commands In the prone position following sterile prep and drape of the lumbar region, the right L5/S1 posterior neuroforamen was identified fluoroscopically. The skin was anesthetized via a 25-gauge 1.5-inch needle with 1% lidocaine solution. At this point, a 25-gauge 3.5-inch spinal needle was atraumatically introduced and advanced under fluoroscopic guidance through the posterior right L5/S1 neuroforamen to approximately the anterior aspect of the canal. Depth was confirmed on lateral view. Following negative aspiration, injection of approximately 1.5 cc of Isovue 200 under live fluoroscopy in the AP view confirmed excellent flow along the nerve root, into the epidural space without vascular or intrathecal uptake observed Radiological data, including multiple fluoroscopic views of the lumbosacral spine, reveal a spinal needle at the right L5/S1 posterior neuroforamen. Subsequent views show flow of contrast material flowing superiorly and infer iorly along the nerve root confirming epidural flow. Subsequently, a test dose of 1.5cc of 0.25% marcaine solution was administered and patient was observed for two minutes for signs or symptoms of complications, including abdominal pain, shortness of breath, bilateral upper or lower extremity weakness, nausea and vomiting, prior to steroid injection. At this point, a total of 3cc or 20mg of dexamethasone and 6mg betamethasone was injected without incident. The procedure tolerated the procedure well without signs or symptoms of complications prior to transfer to the recovery area continued monitoring without incident. The patient was then transferred to the recovery area where they were observed for an appropriate time after the injection. The patient reported a VAS score of 7 prior to the procedure and a post-procedure VAS of 0. Total Fluoroscopy Time: 8 seconds Total Conscious Sedation Time: 24 min POST OP INSTRUCTIONS The patient was provided a Pain Log to continue to record their response to the target-specific procedure prior to follow-up visit with their referring physician. Additionally, specific post-injection care instructions and a contact number to our office were provided if concerns arise regarding possible complications associated with the procedure are suspected. Bartolome Catalan DO Complications: none
--- NOTE | 2019-08-25 09:34 | PC.NURSE ---
0859: Received patient from April LOPEZ via WC, awake, and alert. HR 51-55 on arrival, pre procedure 55. Asymptomatic, no dizziness. Normotensive BP. Assisted from WC to chair.
--- NOTE | 2019-08-26 16:38 | PC.NURSE ---
FOLLOW UP CALL MADE, LEFT VOICEMAIL MSG WITH REMINDER TO CONTINUE PAIN LOG AND CLINIC # IN CASE OF QUESTIONS/CONCERNS.
== END 2019-08-25 09:15 | disposition home or self-care (01) ==
LOC: RAD 07:48
PROVIDERS: Family Provider Family Medicine; PCP Family Medicine; Referring Provider Physical Medicine & Rehabilitation; Visit Provider Physical Medicine & Rehabilitation
DX: M48.07 Spinal stenosis, lumbosacral region (principal); M51.17 Intervertebral disc disorders with radiculopathy, lumbosacral region
CPT/HCPCS: 64483; 99152; J0702; J1100; J2250; J3010

== ENCOUNTER 2019-11-18 07:46 | Day surgery (SDC) | payer MEDICARE, OTHER, SELFPAY ==
[2019-07-09 10:44] VITALS: BMI 24.2
[2019-11-18] VITALS (7 sets, daily range): BP systolic 109–158; BP diastolic 56–80; PULSE 49–87; RESP 10–17; TEMP 36.1–36.9; O2SAT 97–100; BMI 30.4
--- NOTE | 2019-11-18 | PATH_ITS ---
[facility] Accession Number: [id number] . 01 Material submitted: . PART A: colon - CECAL POLYP X2 PART B: colon - COLON POLYP AT 30CM PART C: rectum - RECTAL BIOPSIES NEAR ANAL VERGE . 01 Clinical history: . B: HISTORY OF ULCERATIVE COLITIS PROCTITIS . 02 Diagnosis: A. Cecum, Polyps, Biopsies: Tubular adenoma in 3 of 5 fragments. . B. Colon, Polyp At 30 CM, Biopsy: Tubular adenoma. . C. Rectum, Biopsies Near Anal Verge: Chronic colitis with moderate neutrophilic activity. Negative for CMV antigen by immunohistochemistry. Negative for granulomas, dysplasia and malignancy. [facility] 11/20/2019 1518 Local . 02 Comment: C. The morphologic appearance could be compatible with the provided clinical history of ulcerative colitis if infection and medication-related mucosal injury are excluded. . . . . 02 Electronically signed: . Dot Miranda MD, Pathologist NPI- [id number] . 01 Gross description: . Part A: CECAL POLYP X2: Received in formalin are multiple fragment(s) of santos, soft tissue measuring 0.1 x 0.1 x 0.1 cm to 0.3 x 0.2 x 0.2 cm submitted entirely in 1 cassette(s) Part B: COLON POLYP AT 30CM: Received in formalin are multiple fragment(s) of santos, soft tissue measuring 0.1 x 0.1 x 0.1 cm to 0.5 x 0.4 x 0.3 cm submitted entirely in 1 cassette(s) Part C: RECTAL BIOPSIES NEAR ANAL VERGE: Received in formalin are multiple fragment(s) of santos, soft tissue measuring 0.1 x 0.1 x 0.1 cm to 0.3 x 0.2 x 0.2 cm submitted entirely in 1 cassette(s) /OWEN 11/18/2019 2313 Local . 02 Microscopic: . C. An immunohistochemical stain was performed to evaluate for CMV antigen and is negative. The control stain showed appropriate reactivity. . * This test was developed and its performance characteristics determined by [facility]. It has not been cleared or approved by the U.S. Food and Drug Administration. The FDA has determined that such clearance or approval is not necessary. This test is used for clinical purposes. It should not be regarded as investigational or for research. . 02 Pathologist provided ICD-10: K51.90 . 02 CPT . 926469, 411354, 695512, V83648 Performed at: 01 [facility] [address], [place], [place] [id number] MD Yuriy Lui MD Phone: [phone] Performed at: 02 [facility] [address] [place], [place] [id number] MD Dot Miranda MD Phone: [phone]
[2019-11-18] MEDS: LACTATED RINGERS 1,000 ML 42 ML IV (08:48)
--- NOTE | 2019-11-18 09:30 | PM.HP.1 ---
History of Present Illness History of Present Illness Date Patient Seen: 11/18/19 Time Patient Seen: 09:31 Chief complaint: [id number] Narrative: The patient is a gentleman who is been having rectal bleeding. He has a history of Crohn's or ulcerative colitis. Is generally under control with occasional intermittent bleeding. However he is having bowel movements and with each 1 has some blood. He had hemorrhoid banding in the office and it did not improve his bleeding. Therefore is brought in for colonoscopy and possible hemorrhoid banding here in the outpatient area. Patient History Medical History Herniated nucleus pulposus, L5-S1, right (Acute) Herniated nucleus pulposus, lumbar (Acute) Surgical History Status post hernia repair Family & Social History Family History Father High cholesterol AIDS Mother Mental health problem Grandfather Age: 64 Heart disease Grandmother Age: 53 Encephalitis Social History: household members spouse,family,friend(s) Tobacco & Substance use: Smoking Status Never smoker alcohol intake current alcohol intake frequency 0-2 drinks per day Substance Use Type does not use Meds Home Medications and Allergies Home Medications Medication Instructions Recorded Confirmed Type VITAMIN D (Vitamin D3) 1,000 unit PO QDAY #0 11/01/10 11/18/19 History Fish Oil 2,000 mg PO Q DAY #0 02/09/13 11/18/19 History vitamin B complex [B 1 tab PO QDAY #0 02/14/17 11/18/19 History Complex-Vitamin B12] mesalamine [Asacol HD] See Rx Instructions .ROUTE .COMPLEX 02/06/18 11/18/19 History ranitidine HCl [Zantac] 150 mg PO DAILY 04/24/18 11/18/19 History docusate sodium [Colace] 100 mg PO BID #60 cap 05/07/18 11/18/19 Rx acetaminophen 500 mg tablet 500 mg PO Q6H PRN 08/17/19 11/18/19 History gabapentin 300 mg capsule 300 mg PO .COMPLEX #90 cap 08/17/19 11/18/19 Rx sildenafil (pulm.hypertension) 20 100 mg PO SEE INSTRUCTIONS PRN tab 08/17/19 11/18/19 History mg tablet tramadol 50 mg tablet 50 mg PO BID PRN #60 tab 10/20/19 11/18/19 Rx Allergies Allergy/AdvReac Type Severity Reaction Status Date / Time gluten [GLUTEN] Allergy Severe INTESTINAL Verified 11/18/19 08:33 BLEEDING caffeine [CAFFEINE] Allergy Intermediate CARDIAC Verified 11/18/19 08:33 IRREGULARITY erythromycin base Allergy Intermediate NAUSEA Verified 11/18/19 08:33 [ERYTHROMYCIN BASE] lactose [LACTOSE] Allergy Unknown Verified 11/18/19 08:33 doxycycline [DOXYCYCLINE] AdvReac Unknown NAUSEA, Verified 11/18/19 08:33 LOSS OF APPETITE AND ENERGY, MENTAL CHANGES. DARK CHOCOLATE Allergy Intermediate PHLEGM Uncoded 11/12/19 11:04 Review of Systems Review of Systems Narrative: Patient denies any chest pain heart problems breathing issues asthma etc. No black bowel movements no hematemesis. No seizures or blackouts. Exam Vital Signs (past 8 hours): - 11/18/19 08:38 Temperature 97.4 F L Pulse Rate 87 Respiratory Rate 14 Blood Pressure 158/80 H Pulse Oximetry 100 Oxygen Delivery Method Room Air Narrative Exam Narrative: Cooperative no apparent distress. Eyes are nonicteric. Lungs are clear to auscultation without rales or rhonchi. Heart regular rate and rhythm without murmur gallop. Abdomen is mildly protuberant soft nontender without mass. Liver and spleen are not enlarged. patient is alert and oriented. Speech rate and content are appropriate. Affect is appropriate. Assessment & Plan Assessment & Plan narrative: Patient for colonoscopy and possible hemorrhoid banding. I have discussed the procedure and the rationale with the patient including risks of bleeding, infection, perforation which would necessitate a major operation, failure to find remove all lesions and the potential to tattoo. They appeared to understand and wished to proceed.
--- NOTE | 2019-11-18 09:33 | PM.PREOP ---
Pre-operative Note COVID-19 COVID-19 status: Negative Result date/Date tested (Pos, Neg/Pending): 11/16/19 Interval Note History & Physical reviewed/Exam performed by Physician: Yes Changes to H&P: No ASA Class (for procedural sedation): I
[2019-11-18] MEDS: MIDAZOLAM 5 MG/5 ML VIAL IV (09:37)
[2019-11-18] MEDS: fentaNYL 250 MCG/5 ML INJ IV (09:38)
--- NOTE | 2019-11-18 10:26 | P.OP.ENDO_ITS ---
Operative Date/Time/Diagnoses Date of procedure: 11/18/19 Time of procedure: 10:27 Pre-op diagnosis: Rectal bleeding. History of Crohn's or ulcerative colitis. Post-op diagnosis: same (Proctitis near the anal verge. Very localized. Recurrence of polyp in an area of tattooing. Two small Polyps in the cecum near the appendiceal opening.) Procedure & Clinicians Study performed: Colonoscopy with cold biopsy and hot snare polypectomy Same procedure as scheduled: Yes Indications: Rectal bleeding. Surgeon: Quinn Rodriguez Procedure Notes SCOAP/Timeout: Perform Procedure in detail: The patient was placed in the left lateral decubitus position and underwent IV sedation directed by the surgeon consisting of fentanyl and Versed. Digital exam was unremarkable. Prostate is normal in size without a palpable mass.. The scope was inserted and advanced through the rectum into the sigmoid, descending, transverse, and ascending colon. I noted a polyp on the way in at 30 cm(near tattooing) and sigmoid diverticulosis.. The cecum was reached identified by the ileocecal valve and the appendiceal opening. The ileocecal valve was not cannulated. There were 2 small polyps near the appendiceal opening which were biopsied and removed. The scope was gradually brought out. An additional Polyp was found at 30 cm near a prior tattoo griselda. This was snared in pieces. There was another polyp nearby which I simply cauter ized due to its small size.. The scope ultimately was retroflexed in the rectum. The appearance was remarkable for proctitis near the anal verge. There were visible hemorrhoids which I did not want abandoned the face of active inflammatory disease of the rectum. Biopsies were taken of the inflamed area. The scope was removed and the patient tolerated the procedure well. Prep was excellent. Scope withdrawal time: 10 minutes(total 25) Sedation minutes: 41 Findings: diverticulosis, polyp and other findings (Proctitis) Specimen(s): other (Polyps and biopsies near the anal verge.) Complications: none Post-procedure Recommendations: Other recommendation (Flexible sigmoidoscopy in 6 months to evaluate the area at 30 cm from the anal verge.) Follow up: as needed (Will contact patient regarding pathology) Disposition: PACU
--- NOTE | 2019-11-18 11:04 | SUR.PHASEII ---
Dr. Rodriguez notified of pt resting heart rate in phase II. Pt asymptomatic at this time. Per Dr. Rodriguez ok for pt to be discharged to home at this time.
== END 2019-11-18 11:24 | disposition home or self-care (01) ==
PROVIDERS: Family Provider Family Medicine; PCP Family Medicine; Referring Provider Family Medicine; Visit Provider Specialist
PROC: 0DJD8ZZ Inspection of Lower Intestinal Tract, Via Natural or Artificial Opening Endoscopic (ICD-10-PCS; CPT 45378; principal; 2019-11-18 09:45)
DX: K51.90 Ulcerative colitis, unspecified, without complications (principal); K62.89 Other specified diseases of anus and rectum; K57.30 Diverticulosis of large intestine without perforation or abscess without bleeding; K64.9 Unspecified hemorrhoids; D12.0 Benign neoplasm of cecum; D12.6 Benign neoplasm of colon, unspecified
CPT/HCPCS: 45385; 45380; 99152; 99153; J2250; J3010

== ENCOUNTER → 2019-12-12 09:50 | Outpatient (CLI) | payer MEDICARE, OTHER, SELFPAY ==
[2019-07-09 10:44] VITALS: BMI 24.2
[2019-12-13 10:34] LABS: COVID19 Sendout Not Detected (Not Detect)
== END ==
PROVIDERS: Family Provider Family Medicine; PCP Family Medicine; Visit Provider Physician Assistant
DX: Z11.59 Encounter for screening for other viral diseases (principal)
CPT/HCPCS: 87635

== ENCOUNTER 2019-12-15 08:31 | Outpatient (CLI) | payer MEDICARE, OTHER, SELFPAY ==
[2019-07-09 10:44] VITALS: BMI 24.2
[2019-12-15] VITALS (10 sets, daily range): BP systolic 102–142; BP diastolic 56–71; PULSE 40–72; RESP 14–17; TEMP 36.4; O2SAT 93–100
--- NOTE | 2019-12-15 08:32 | DI.RAD.S_ITS ---
PROCEDURE: PAIN L INTERLAMINAR/CAUDAL INJ INDICATIONS: SPONDYLOSIS FINDINGS: Fluoroscopic spot filming was performed to verify placement of spinal needles at the L5-S1 level(s), as labeled on the films. Appropriate location(s) of the needle tip(s) was confirmed by injection of iodinated contrast. Dictated by: Danie Noguera M.D. on 12/16/2019 at 8:47 Approved by: Danie Noguera M.D. on 12/16/2019 at 8:47
[2019-12-15] MEDS: MIDAZOLAM 5 MG/5 ML VIAL IV (10:56)
[2019-12-15] MEDS: BETAMETHASONE 30 MG/5 ML MDV 6 MG INJ (10:57)
[2019-12-15] MEDS: BUPIVACAINE 0.25% (PF) VIAL 2 ML INJ (10:57)
[2019-12-15] MEDS: DEXAMETHASONE 10 MG/ML VIAL 20 MG INJ (10:58)
--- NOTE | 2019-12-15 11:07 | P.PCN_ITS ---
Procedures Date/Time Date of procedure: 12/15/19 Time of procedure: 11:07 General Procedure description: PROVIDER: Bartolome Catalan DO Operative Note PREOP DIAGNOSIS 1. HNP WITH RADICULAR FEATURES, 2. MULTILEVEL CENTRAL STENOSIS, POST OP DIAGNOSIS 1. HNP WITH RADICULAR FEATURES, 2. MULTILEVEL CENTRAL STENOSIS, PROCEDURES 1. FLUORSCOPICALLY GUIDED CONTRAST CONTROLLED INTERLAMINAR EPIDURAL STEROID INJECTION - para Right L5/S1 PHYSICIAN: Bartolome Catalan DO INDICATIONS Liu is referred by Dr. Kimbrough for treatment of Bilateral Foraminal Stenosis L>R LE symptoms. FINDINGS Multilevel Central Spinal Stenosis with Nerve Root Compression DESCRIPTION OF PROCEDURE Fluoroscopically guided, contrast-controlled L5/S1 translaminar epidural steroid injection. Following review of allergy and review of potential side effects and comp lications, including, but not necessarily limited to, infection, allergic reaction, local tissue breakdown, temporary as well as permanent nerve injury, paralysis, stroke and possible , the patient indicated that the patient understood and agreed to proceed. An informed consent document was signed by the patient, witnessed by a nurse, and placed in the patient's chart. Additionally, other treatment options including modalities, medications, and physical therapy were reviewed with the patient. After review of previous anaesthesic history and IV conscious sedation the patient was deemed safe to proceed with todays procedure with IV conscious sedation as ASA class II designation. Safety time-out was performed to confirm patient ID, procedure to be performed and site of procedure. IV sedation was accomplished with a combination of 2mg of Versed administered by the RN after DO order, titrated to patient comfort during the course of the procedure while the patient remained responsive to all verbal commands. In the prone position, following sterile prep and drape of the lumbar region, the L5/S1 translaminar space was identified fluoroscopically. The skin was anesthetized via a 25-gauge, 1.5-inch needle with 1% lidocaine solution. At this point, a 22-gauge short bevel spinal needle was atraumatically introduced and advanced under fluoroscopic guidance into the region of the L5/S1 translaminar space. Depth was confirmed on lateral view. Radiological data, including multiple fluoroscopic views of the lumbar spine, reveal a spinal needle at the L5/S1 translaminar space. Lateral views then show placement of the needle in the epidural space. Subsequent views show contrast material flowing superiorly and inferiorly in the epidural space. No vascular or intrathecal uptake is observed. At this point, using loss of resistance technique with saline and air, the epidural space was entered. This was confirmed following negative aspiration with injection of approximately 1.5 cc of Isovue 200, showing excellent epidural flow without vascular or intrathecal uptake. At this point, 1 cc of 1% lidocaine solution combined with 3cc or 20mg of dexamethasone and 6mg of betamethasone was injected without incident. The patent tolerated the procedure without signs of symptoms of complications prior to transfer to the recovery area for further monitoring. The patient was then transferred to the recovery area where they were observed for an appropriate period of time after the injection. The patient reported a VAS score of 6 prior to the procedure and a post-procedure VAS of 0. Total Fluoroscopy Time: 5seconds Total Conscious Sedation Time: 24min POST OP INSTRUCTIONS The patient was provided a Pain Log to continue to record their response to the target-specific procedure prior to follow-up visit with their referring physician. Additionally, specific post-injection care instructions and a contact number to our office were provided if concerns arise regarding possible complications associated with the procedure are suspected. Bartolome Catalan DO Complications: none
--- NOTE | 2019-12-15 11:42 | PC.NURSE ---
Pt arrrive to pre proc room via wc, minimal assistance on transfer from wc to chair. Monitoring resumed by this RN
== END 2019-12-15 11:44 | disposition home or self-care (01) ==
LOC: RAD 08:32
PROVIDERS: Family Provider Family Medicine; PCP Family Medicine; Referring Provider Physical Medicine & Rehabilitation; Visit Provider Physical Medicine & Rehabilitation
DX: M51.17 Intervertebral disc disorders with radiculopathy, lumbosacral region (principal); M48.07 Spinal stenosis, lumbosacral region
CPT/HCPCS: 62323; 99152; J0702; J1100; J2250; J3010

== ENCOUNTER 2020-08-26 07:53 | Day surgery (SDC) | payer MEDICARE, OTHER, SELFPAY ==
[2019-07-09 10:44] VITALS: BMI 24.2
--- NOTE | 2020-08-26 | PATH_ITS ---
[facility] Accession Number: [id number] . 01 Material submitted: . colon - 30 CM COLON BIOPSY . 01 Clinical history: . FLEX SIG . 02 Diagnosis: Colon, 30 cm, Biopsy: Colonic mucosa with no significant diagnostic abnormality. Negative for active inflammation, granulomas, dysplasia, and malignancy. Additional levels were examined. MRV 08/31/2020 1531 Local . 02 Electronically signed: . Dot Miranda MD, Pathologist NPI- [id number] . 01 Gross description: . 30 CM COLON BIOPSY: Received in formalin are 2 fragment(s) of santos, soft tissue measuring 0.3 x 0.3 x 0.2 cm to 0.3 x 0.2 x 0.1 cm submitted entirely in 1 cassette(s) /QBJ 08/27/2020 0906 Local . 02 Pathologist provided ICD-10: Z86.010 . 02 CPT . 649741 Performed at: 01 [facility] [address], [place], [place] [id number] MD Yuriy Lui MD Phone: [phone] Performed at: 02 [facility] [address] [place], [place] [id number] MD Dot Miranda MD Phone: [phone]
[2020-08-26 08:25] VITALS: BP 164/86; PULSE 70; RESP 99; TEMP 36.3; BMI 25.0
[2020-08-26] MEDS: LACTATED RINGERS 1,000 ML 200 ML IV (08:46)
--- NOTE | 2020-08-26 10:09 | PM.HP.1 ---
History of Present Illness History of Present Illness Date Patient Seen: 08/26/20 Time Patient Seen: 10:09 Chief complaint: FLEX SIG Narrative: Patient is a gentleman who has had repeated recurrences of a polyp at 30 cm from the anal verge. He is brought in for re-evaluation of that area to make sure that nothing has grown back and there is no new lesions there. Patient History Medical History Facet arthropathy, lumbar Herniated nucleus pulposus, L5-S1, right Herniated nucleus pulposus, lumbar Surgical History Status post hernia repair Family & Social History Family History Father High cholesterol AIDS Mother Mental health problem Grandfather Age: 65 Heart disease Grandmother Age: 54 Encephalitis Social History: household members spouse,family,friend(s) Tobacco & Substance use: Smoking Status Never smoker alcohol intake current alcohol intake frequency 0-2 drinks per day Substance Use Type does not use Meds Home Medications and Allergies Home Medications Medication Instructions Recorded Confirmed Type cholecalciferol (vitamin D3) 125 mcg PO DAILY #0 11/01/10 08/26/20 History [Vitamin D3] vitamin B complex [B 1 tab PO QDAY #0 02/14/17 08/26/20 History Complex-Vitamin B12] mesalamine [Asacol HD] See Rx Instructions .ROUTE .COMPLEX 02/06/18 08/26/20 History ranitidine HCl [Zantac] 150 mg PO DAILY 04/24/18 08/26/20 History docusate sodium [Colace] 100 mg PO BID #60 cap 05/07/18 08/26/20 Rx acetaminophen 500 mg tablet 500 mg PO Q6H PRN 08/17/19 08/26/20 History sildenafil (pulm.hypertension) 20 100 mg PO SEE INSTRUCTIONS PRN tab 08/17/19 08/26/20 History mg tablet tramadol 50 mg tablet 50 mg PO BID PRN #60 tab 10/20/19 08/26/20 Rx gabapentin 300 mg capsule See Rx Instructions .ROUTE 08/15/20 08/26/20 Rx .COMPLEX #90 cap Allergies Allergy/AdvReac Type Severity Reaction Status Date / Time gluten [GLUTEN] Allergy Severe INTESTINAL Verified 08/26/20 08:36 BLEEDING caffeine [CAFFEINE] Allergy Intermediate CARDIAC Verified 08/26/20 08:36 IRREGULARITY erythromycin base Allergy Intermediate NAUSEA Verified 08/26/20 08:36 [ERYTHROMYCIN BASE] lactose [LACTOSE] Allergy Unknown Verified 08/26/20 08:36 chocolate flavor AdvReac Intermediate Verified 08/26/20 08:39 doxycycline [DOXYCYCLINE] AdvReac Unknown NAUSEA, Verified 08/26/20 08:36 LOSS OF APPETITE AND ENERGY, MENTAL CHANGES. Review of Systems Review of Systems ROS: Yes All systems reviewed with the patient and are negative except as otherwise documented Exam Vital Signs (past 8 hours): - 08/26/20 08:25 Temperature 97.4 F L Pulse Rate 70 Respiratory Rate 99 H Blood Pressure 164/86 H Oxygen Delivery Method Room Air Narrative Exam Narrative: Pleasant cooperative patient no apparent distress. Lungs are clear to auscultation. No rales or rhonchi. Heart regular rate and rhythm no murmur gallop. Abdomen is soft nontender without mass. No obvious hernias. Patient is alert and oriented x3. Assessment & Plan Assessment & Plan narrative: The patient for a flexible sigmoidoscopy. I have discussed the procedure with them. Risks of bleeding, perforation which would necessitate major operation, failure to find remove all lesions, the potential tattoo were all discussed. All questions were answered. They wished to proceed.
--- NOTE | 2020-08-26 10:12 | PM.PREOP ---
Pre-operative Note COVID-19 COVID-19 status: Negative Result date/Date tested (Pos, Neg/Pending): 08/24/20 Interval Note History & Physical reviewed/Exam performed by Physician: Yes Changes to H&P: No ASA Class (for procedural sedation): I
[2020-08-26] MEDS: fentaNYL 250 MCG/5 ML INJ IV (10:19)
[2020-08-26] MEDS: MIDAZOLAM 5 MG/5 ML VIAL IV (10:19)
--- NOTE | 2020-08-26 10:30 | PM.OP.ENDO ---
Operative Date/Time/Diagnoses Date of procedure: 08/26/20 Time of procedure: 10:31 Post-op diagnosis: same Procedure & Clinicians Study performed: Flexible sigmoidoscopy and cold biopsy. Same procedure as scheduled: Yes Indications: Determine complete resolution of polyp at 30 cm. Surgeon: Quinn Rodriguez Procedure Notes SCOAP/Timeout: Performed Procedure in detail: The patient is placed in left lateral decubitus position underwent IV sedation direct by the surgeon consisting of fentanyl Versed. Digital exam was remarkable for enlarged prostate. Scope was advanced through the rectum into the sigmoid colon to the level of about 45 cm wearing countered form stool. The scope was slowly brought back. I Identified the area of tattooing and I examined the region carefully. I took some of biopsies of the an area of that is probably normal variant. In any event the scope was brought out and patient tolerated the procedure well. I saw no evidence of visible recurrence of the polyp. Scope withdrawal time: Not applicable Sedation minutes: 10 Findings: diverticulosis Specimen(s): other (Biopsies of region of polyp) Complications: none Post-procedure Recommendations: Colonscopy in 3 years Follow up: as needed Disposition: PACU
[2020-08-26 10:35] VITALS: BP 132/65; PULSE 65; RESP 12; TEMP 36.6; O2SAT 99
[2020-08-26 10:40] VITALS: BP 138/73; PULSE 55; RESP 16; O2SAT 98
[2020-08-26 10:48] VITALS: BP 138/74; PULSE 54; RESP 12; TEMP 36.7; O2SAT 99
== END 2020-08-26 11:06 | disposition home or self-care (01) ==
PROVIDERS: Family Provider Family Medicine; PCP Family Medicine; Referring Provider Specialist; Visit Provider Specialist
PROC: 0DJD8ZZ Inspection of Lower Intestinal Tract, Via Natural or Artificial Opening Endoscopic (ICD-10-PCS; CPT 45378; principal; 2020-08-26 09:15)
DX: Z86.010 Personal history of colon polyps (principal); Z12.11 Encounter for screening for malignant neoplasm of colon; K57.30 Diverticulosis of large intestine without perforation or abscess without bleeding
CPT/HCPCS: 45331; 99152; J2250; J3010

== ENCOUNTER 2020-11-02 08:02 | Day surgery (SDC) | payer MEDICARE, OTHER, SELFPAY ==
[2019-07-09 10:44] VITALS: BMI 24.2
--- NOTE | 2020-11-01 19:37 | PM.PREOP ---
Pre-operative Note COVID-19 COVID-19 status: Negative Interval Note History & Physical reviewed/Exam performed by Physician: Yes Changes to H&P: No
--- NOTE | 2020-11-02 07:37 | PM.OP.1 ---
Operative Date/Time/Diagnoses Date of procedure: 11/02/20 Time of procedure: 09:45 Procedure & Clinicians Procedure: Preoperative diagnoses: 1. Right significant nuclear sclerotic and cortical cataract. 2. Previous left posterior vitrectomy and epiretinal membrane peel as well as cataract surgery. 3. Strabismus needing prisms for the prevention of double vision. 4. Arrhythmia. 5. Colitis. 6. Anxiety disorder. 7. Asteroid hyalosis right eye. Postoperative diagnoses: 1. Complex cataract removed by phacoemulsification with placement of posterior chamber intraocular lens and use of capsular dye. Procedure: Phacoemulsification with posterior chamber intraocular lens implant Surgeon: Jamilah Browne MD Complications: None Specimen: None Implant: DIBOO+19.0 Blood loss: None Anesthesia: Retrobulbar with monitored standby Description of procedure: Patient presents with a complaint of decreased vision due to cataract which is affecting activities of daily living especially with driving and poor contrast compared to his left eye. This is his best potential eye due to previous retinal surgery on his left side.. The patient wants surgery to improve vision. He understands the extra risk of surgery during the COVID-19 epidemic and desires to proceed. He does have asteroid hyalosis of the posterior vitreous which may reduced visibility during surgery and required capsular dye. He is tested that COVID 19 virus negative within 72 hours of the procedure. The patient was taken to the operating room and given IV sedation. A retrobulbar block consisting of 6 cc of 2% xylocaine without epinephrine mixed half and half with 0.5% Marcaine with 1 cc of hyaluronidase added is placed between the medial and lateral 1/3 of the inferior orbital rim. The eye is manually massaged for 30 sec, prepped using Betadine solution, and draped in the usual sterile fashion. Temporal approach was made, a 1 mm side-port incision was made 90? from the proposed clear corneal incision position. Phenylephrine 1.5% mixed with 1% xylocaine 0.2 cc was placed into the anterior chamber. Viscoat followed by Healon was then placed. An air bubble was placed followed by Visudyne capsular dye to improve his visibility of the anterior capsule. The air was then irrigated out with BSS. A 2.6 mm clear incision with a 2.6 mm blade was placed. A 360 degree capsulorrhexis style capsulotomy was then performed with a cystitome needle on a Healon greatly aided by the capsular dye. The zonules were loose but all hold intact. Hydrodelineation and hydrodissection were performed. The phacoemulsification unit is introduced, and sculpting notice used to groove the central lens. It is then removed in chopping mode. Epi nucleus is removed with epinuclear mode and irrigation aspiration was used to remove the peripheral cortex. The posterior capsule is polished. The intraocular lens is selected, inspected, power confirmed, and placed in the posterior chamber. The wound was stromally hydrated and tested for leaks, there was none and it was left sutureless. Vigamox 0.1 cc was placed into the anterior chamber. Kenalog 0.2 cc was placed in the superior subconjunctival space. A drop of antibiotic and was placed and the eye was patched and shielded. The patient was stable and returned to the recovery room in excellent condition. Dictated by: Jamilah Browne MD Copy to: [facility] Same procedure as scheduled: Yes
[2020-11-02 08:45] VITALS: BP 155/80; PULSE 70; RESP 18; TEMP 36.7; O2SAT 99; BMI 24.2
[2020-11-02] MEDS: PROPARACAINE 0.5% OPHTH SOL 2 DROPS EYE-OP (08:45)
[2020-11-02] MEDS: CATARACT EYE COMPOUND (10 DROPS/SYRINGE) 3 DROPS EYE-OP (08:50)
[2020-11-02] MEDS: CHONDROIDTIN/SOD HYALURONATE 1.05 ML SYRINGE INTRAOCULA (10:16)
[2020-11-02] MEDS: HYALURONATE SODIUM 10 MG/ML SYRINGE INJ (10:16)
[2020-11-02] MEDS: TRIAMCINOLONE 50 MG/5 ML VIAL INJ (10:17)
[2020-11-02] MEDS: MOXIFLOXACIN INJ 4 MG/0.8 ML VIAL 0.5 MG EYE-OP (10:17)
[2020-11-02] MEDS: PHENYLEPHRINE/LIDOCAINE VIAL (OR) 0.2 ML EYE-OP (10:18)
[2020-11-02] MEDS: TRYPAN BLUE 0.5 ML SYRINGE INJ (10:18)
[2020-11-02] MEDS: LIDOCAINE 2% 4 ML, BUPIVACAINE 0.5% (PF) 4 ML, HYALURONIDASE 150 UNIT INJ (10:18)
[2020-11-02] MEDS: BALANCED SALT IRRIG SOLN NO.2 500 ML, EPINEPHrine 1 MG IRR (10:19)
[2020-11-02] MEDS: ERYTHROMYCIN OPHTH 1 GM OINT 1 APPLIC EYE-RIGHT (10:20)
[2020-11-02 10:45] VITALS: BP 131/59; PULSE 52; RESP 14; TEMP 36.2; O2SAT 98
== END 2020-11-02 10:58 | disposition home or self-care (01) ==
LOC: OR 08:04
PROVIDERS: Family Provider Family Medicine; PCP Family Medicine; Referring Provider Ophthalmology; Visit Provider Ophthalmology
PROC: (CPT 66984; principal; 2020-11-02 09:45)
DX: H25.811 Combined forms of age-related cataract, right eye (principal); H50.9 Unspecified strabismus; F41.9 Anxiety disorder, unspecified; H43.21 Crystalline deposits in vitreous body, right eye
CPT/HCPCS: 66984; J0171; J2704; J3301; J3470

== ENCOUNTER → 2023-04-08 07:40 | Outpatient (CLI) | payer MEDICARE, OTHER, SELFPAY ==
[2019-07-09 10:44] VITALS: BMI 24.2
--- NOTE | 2023-04-08 07:41 | DI.RAD.S_ITS ---
PROCEDURE: XR LUMBAR SPINE MIN 4V INDICATIONS: BACK PAIN TECHNIQUE: 5 views of the lumbar spine were acquired, including bilateral oblique views. COMPARISON: None. FINDINGS: Bones: 5 nonrib-bearing vertebrae are present. Multilevel degenerative changes of the lumbar spine. Degenerative disc disease at multiple levels with disc space narrowing at L1-2, L2-3, and L5-S1. Apparent fusion of L4-5. Severe facet arthropathy. Osteophytes anteriorly at multiple levels. Mild leftward curvature of the lumbar spine. No vertebral body compression fractures. No suspicious bony lesions. Soft tissues: Overlying bowel gas pattern is normal. No suspicious soft tissue calcifications. Oblique images: No pars defects. IMPRESSION: 1. No acute abnormality. 2. Multilevel degenerative changes of the lumbar spine with disc disease and facet arthrosis at multiple levels. Dictated by: Joaquin Parker M.D. on 04/08/2023 at 9:40 Approved by: Joaquin Parker M.D. on 04/08/2023 at 9:42
== END ==
PROVIDERS: Family Provider Family Medicine; PCP Family Medicine; Referring Provider Physical Medicine & Rehabilitation; Visit Provider Physical Medicine & Rehabilitation
DX: M47.816 Spondylosis without myelopathy or radiculopathy, lumbar region (principal); M51.27 Other intervertebral disc displacement, lumbosacral region; M51.36 Other intervertebral disc degeneration, lumbar region; M48.061 Spinal stenosis, lumbar region without neurogenic claudication; M48.07 Spinal stenosis, lumbosacral region; K52.9 Noninfective gastroenteritis and colitis, unspecified; K92.2 Gastrointestinal hemorrhage, unspecified; K51.911 Ulcerative colitis, unspecified with rectal bleeding
CPT/HCPCS: 72110; 99214